=== PATIENT | female | born 1985 | race Caucasian/White ===

== ENCOUNTER → 2020-04-03 11:53 | Outpatient (BNVA) | payer SELFPAY | PROVIDERS: PCP Nurse Practitioner Family; Referring Provider Nurse Practitioner Family; Visit Provider Nurse Practitioner Family | DX: N39.0 Urinary tract infection, site not specified (principal) | CPT/HCPCS: 81003; 87077; 87086; 87184 ==

== ENCOUNTER → 2020-05-16 09:07 | Outpatient (BNVA) | payer SELFPAY | PROVIDERS: PCP Nurse Practitioner Family; Visit Provider Urology | DX: R30.0 Dysuria (principal); N39.0 Urinary tract infection, site not specified | CPT/HCPCS: 81003 ==

== ENCOUNTER → 2020-06-19 09:34 | Outpatient (BNVA) | payer SELFPAY | PROVIDERS: PCP Nurse Practitioner Family; Visit Provider Urology | DX: N39.0 Urinary tract infection, site not specified (principal) | CPT/HCPCS: 81003; 87077; 87086; 87184 ==

== ENCOUNTER → 2020-08-08 10:06 | Outpatient (BNVA) | payer SELFPAY | PROVIDERS: PCP Nurse Practitioner Family; Visit Provider Urology | DX: N39.0 Urinary tract infection, site not specified (principal) | CPT/HCPCS: 81003 ==

== ENCOUNTER → 2021-02-05 11:26 | Outpatient (BNVA) | payer SELFPAY | PROVIDERS: PCP Nurse Practitioner Family; Visit Provider Urology | DX: N39.0 Urinary tract infection, site not specified (principal) | CPT/HCPCS: 81003; 87077; 87086; 87184 ==

== ENCOUNTER → 2021-03-27 15:03 | Outpatient (BNVA) | payer SELFPAY | PROVIDERS: PCP Nurse Practitioner Family; Visit Provider Nurse Practitioner Family | DX: R31.0 Gross hematuria (principal) | CPT/HCPCS: 81003 ==

== ENCOUNTER → 2021-04-16 08:21 | Outpatient (BNVA) | payer SELFPAY | PROVIDERS: PCP Nurse Practitioner Family; Visit Provider Urology | DX: R31.0 Gross hematuria (principal) | CPT/HCPCS: 81003 ==

== ENCOUNTER 2021-05-21 09:00 | Emergency (ER) | payer OTHER, SELFPAY ==
[2021-05-21 09:34] VITALS: BP 120/68; PULSE 69; RESP 18; TEMP 36.9; O2SAT 100; BMI 25.7
[2021-05-21 10:33] VITALS: BP 109/73; PULSE 64; RESP 14; O2SAT 99
[2021-05-21 10:50] LABS: Add Urine Microscopic? NO; Charge for UA Resulting for Rev
[2021-05-21 10:53] LABS: Bilirubin Urine Neg (Negative); Blood Urine Neg (Negative); Glucose Urine UA Norm (Normal); Ketones Urine Negative (Negative); Leukocyte Esterase Urine Negative (Negative); Nitrate Urine Negative (Negative); Protein Urine Neg (Negative); Urine Appearance Clear (CLEAR); Urine Color Yellow (Yellow); Urobilinogen Urine Norm (Negative); pH Urine 7 (5-7)
[2021-05-21 11:31] LABS: Basophils % 0.7 %; Eosinophils # 0.3 10^3/uL (0.0-0.8); Eosinophils % 7.5 %; Hemoglobin 13.1 g/dL (11.5-15.3); Lymphocytes # 1.7 10^3/uL (0.8-4.8); Lymphocytes % 39.2 %; Mean Corpuscular HGB Conc 29.8 g/dL (30.0-36.0); Mean Corpuscular Hemoglobin 28.5 pg (28.0-34.0); Mean Corpuscular Volume 95.9 fl (81-99); Mean Platelet Volume 11.3 fL (7.4-10.4); Monocytes # 0.3 10^3/uL (0.2-0.9); Monocytes % 5.8 %; Neutrophils # 2.01 10^3/uL (1.8-7.7); Neutrophils % 46.8 %; Nucleated Red Blood Cells % 0 %; Platelet Count 165 10^3/cmm (130-400); Red Blood Count 4.59 10^6/uL (4.1-5.3); Red Cell Distribution Width 13.8 % (12.1-15.1); White Blood Count 4.3 10^3/uL (4.0-10.0)
[2021-05-21 11:51] LABS: HCG, Serum Qual Negative (Negative)
--- NOTE | 2021-05-21 11:53 | W.ED.FEMALGU ---
HPI - Female Genitourinary General: Chief complaint: Urogenital-Female Stated complaint: BLOOD IN URINE Time Seen by Provider: 05/21/21 11:53 Source: patient Mode of arrival: ambulatory Limitations: no limitations History of Present Illness: Patient is a 36-year-old female who presents to ED today for an episode of hematuria. Patient states she has had intermittent episodes of hematuria for several months. She has followed up with Dr. Pinto's office several times. She states she has been diagnosed with chronic cystitis/recurrent UTIs. She states at one point they had a plan to do a cystoscopy but this has yet to be completed. She states she noticed blood in her urine yesterday evening and continuing until this morning. She does admit the urine sample given today was pretty clear . Patient is not having any vaginal bleeding. She is not having any pain currently. Denies dysuria, frequency, urgency. MD elicited complaint: other (hematuria) Onset (ago): hour(s) Vaginal discharge: none Vaginal bleeding: none Urinary symptoms: Hematuria Exacerbating factors: none Relieving factors: none Associated symptoms: Reports no associated symptoms; Deny abdominal pain, nausea or vaginal discharge Treatment prior to arrival: none Patient : No Date of Last Menstrual Period: 05/12/21 Review of Systems Const: Denies: fever(s), chills, body aches, fatigue or malaise GI: Denies: abdominal pain, nausea, vomiting or diarrhea : Reports: hematuria; Denies: flank pain, difficulty voiding, dysuria, urinary frequency, urinary urgency, urinary hesitancy, vaginal odor, vaginal bleeding, vaginal discharge, metrorrhagia or pelvic pain Musc: Denies: back pain PFS ED PFSH: Medical History Gross hematuria Recurrent UTI Family History Family/Other Cancer colon Diabetes Hyperlipidemia Hypertension Social History Alcohol intake: never Marital status: Current occupational status: employed History of recent travel: No Female Reproductive History: Date of last menstrual period: 05/12/21 Physical Exam Const: COMMON NORMALS: no acute distress, average body habitus, patient oriented x3, no limitations, healthy appearing, alert and well nourished Resp: COMMON NORMALS: normal respiratory effort and clear to auscultation bilaterally AUSCULTATION: clear to auscultation bilaterally Cardio: COMMON NORMALS: regular rate and regular rhythm RATE: regular rate RHYTHM: regular rhythm GI: COMMON NORMALS: Normal to inspection, nondistended, normoactive bowel sounds present, Soft to palpation, non-tender, No hepatosplenomegaly present and no masses PALPATION: Yes Soft to palpation and Yes No hepatosplenomegaly present : COMMON NORMALS: Yes no CVA tenderness BLADDER/KIDNEY EXAM: Yes no CVA tenderness Back/Pelvis: COMMON NORMALS: no CVA tenderness Neuro: COMMON NORMALS: patient oriented x3 SENSORIUM/ORIENTATION: Yes alert Course Vital Signs: Vital signs: Vital Signs Temperature 98.4 F 05/21/21 09:34 Pulse Rate 64 05/21/21 10:33 Respiratory Rate 14 05/21/21 10:33 Blood Pressure 109/73 05/21/21 10:33 Pulse Oximetry 99 05/21/21 10:33 MDM - Female Medical Decision Making Patient appears in no acute distress. Her vital signs are perfect. Lab work is unremarkable. Her UA today is completely normal-no signs of UTI/no blood noted. Recommend she continue follow-up with urology if symptoms persist and they can re-evaluate the need for a possible cystoscopy. Next appointment is in 6 months-will have CM see if they want/need to see her sooner. Return to ED precautions verbally given to patient. Lab Data : 05/21/21 11:06 05/21/21 11:06 Laboratory Results WBC 4.3 10^3/uL (4.0-10.0) 05/21/21 11:06 RBC 4.59 10^6/uL (4.1-5.3) 05/21/21 11:06 Hgb 13.1 g/dL (11.5-15.3) 05/21/21 11:06 Hct 44.0 % (37.0-47.0) 05/21/21 11:06 MCV 95.9 fl (81-99) 05/21/21 11:06 MCH 28.5 pg (28.0-34.0) 05/21/21 11:06 MCHC 29.8 g/dL (30.0-36.0) L 05/21/21 11:06 RDW 13.8 % (12.1-15.1) 05/21/21 11:06 Plt Count 165 10^3/cmm (130-400) 05/21/21 11:06 MPV 11.3 fL (7.4-10.4) H 05/21/21 11:06 Neut % (Auto) 46.8 % 05/21/21 11:06 Lymph % (Auto) 39.2 % 05/21/21 11:06 [place] % (Auto) 5.8 % 05/21/21 11:06 Eos % (Auto) 7.5 % 05/21/21 11:06 Baso % (Auto) 0.7 % 05/21/21 11:06 Neut # (Auto) 2.01 10^3/uL (1.8-7.7) 05/21/21 11:06 Lymph # (Auto) 1.7 10^3/uL (0.8-4.8) 05/21/21 11:06 [place] # (Auto) 0.3 10^3/uL (0.2-0.9) 05/21/21 11:06 Eos # (Auto) 0.3 10^3/uL (0.0-0.8) 05/21/21 11:06 Baso # (Auto) 0.0 10^3/uL (0.0-0.1) 05/21/21 11:06 Nucleated RBC % (auto) 0 % 05/21/21 11:06 Nucleated RBCs # 0.0 /100WBC 05/21/21 11:06 Sodium 136 mmol/L (136-145) 05/21/21 11:06 Potassium 4.0 mmol/L (3.5-5.1) 05/21/21 11:06 Chloride 103 mmol/L (98-107) 05/21/21 11:06 Carbon Dioxide 23 mmol/L (22-29) 05/21/21 11:06 Anion Gap 14.0 (5-19) 05/21/21 11:06 BUN 5 mg/dL (6-20) L 05/21/21 11:06 Creatinine 0.5 mg/dL (0.5-0.9) 05/21/21 11:06 GFR Calculation 139.6 mL/min (90-130) H 05/21/21 11:06 Glucose 81 mg/dL (65-115) 05/21/21 11:06 Calculated Osmolality 278 mOsm/kg (285-295) L 05/21/21 11:06 Calcium 9.7 mg/dL (8.5-10.5) 05/21/21 11:06 Total Bilirubin 0.3 mg/dL (0.15-1.2) 05/21/21 11:06 AST 20 U/L (0-32) 05/21/21 11:06 ALT 15 U/L (0-33) 05/21/21 11:06 Alkaline Phosphatase 93 IU/L (35-105) 05/21/21 11:06 Total Protein 8.3 g/dL (6.6-8.7) 05/21/21 11:06 Albumin 4.2 g/dL (3.5-5.2) 05/21/21 11:06 Globulin 4.1 g/dL (1.3-4.6) 05/21/21 11:06 HCG, Qual Negative (Negative) 05/21/21 11:06 Urine Color Yellow (Yellow) 05/21/21 10:30 Urine Appearance Clear (CLEAR) 05/21/21 10:30 Urine pH 7 (5-7) 05/21/21 10:30 Ur Specific [place] 1.010 (1.005-1.030) 05/21/21 10:30 Urine Protein Neg (Negative) 05/21/21 10:30 Urine Glucose (UA) Norm (Normal) 05/21/21 10:30 Urine Ketones Negative (Negative) 05/21/21 10:30 Urine Blood Neg (Negative) 05/21/21 10:30 Urine Nitrate Negative (Negative) 05/21/21 10:30 Urine Bilirubin Neg (Negative) 05/21/21 10:30 Urine Urobilinogen Norm mg/dL (Negative) 05/21/21 10:30 Ur Leukocyte Esterase Negative (Negative) 05/21/21 10:30 Discharge Plan Discharge Patient Disposition: Home Clinical Impression: Hematuria Qualifiers: Hematuria type: unspecified type Qualified Code(s): R31.9 - Hematuria, unspecified Condition: Stable Prescriptions: No Action amoxicillin-pot clavulanate 875-125 mg tablet 1 tab PO BID Qty: 60 2RF Discharge Orders: Discharge ED (Routine); Ordered 05/21/21 Ordered By: Rebecca Brandon Referrals: Chelsi Gallagher FNP [Primary Care Provider] - Coding Level of Care Code ED [employer] Director for Carie [facility]
[2021-05-21 11:56] LABS: Alanine Aminotransferase 15 U/L (0-33); Albumin Level 4.2 g/dL (3.5-5.2); Alkaline Phosphatase 93 IU/L (35-105); Aspartate Amino Transferase 20 U/L (0-32); Blood Urea Nitrogen 5 mg/dL (6-20); Calcium 9.7 mg/dL (8.5-10.5); Carbon Dioxide 23 mmol/L (22-29); Chloride 103 mmol/L (98-107); Globulin 4.1 g/dL (1.3-4.6); Glomerular Filtration Rate 139.6 mL/min (90-130); Glucose 81 mg/dL (65-115); Osmolality Calculated 278 mOsm/kg (285-295); Sodium 136 mmol/L (136-145); Total Bilirubin 0.3 mg/dL (0.15-1.2); Total Protein 8.3 g/dL (6.6-8.7)
--- NOTE | 2021-05-22 13:48 | DCPLANNER ---
Addendum entered by Jerrica Dasilva 06/15/21 10:32: Patient had a follow up appointment scheduled for 05.30.[address] Pinto - patient did attend appointment. Addendum entered by Jerrica Dasilva 05/25/21 13:40: Patient has a follow up appointment scheduled for Sunday, May 30, [address] at 8:[address] Pinto. Clinic will call patient with appointment information. Original Note: group fitness manager had message to refer patient to Dr. Pinot. group fitness manager emailed patients information to Dwight Power and Julie at the office of Dr. Pinto. Patient has an appointment, physician wanted to see if appointment could be moved up any earlier. Patients information will be printed and reviewed. Clinic will call patient with appointment information.
== END 2021-05-21 12:16 | disposition home or self-care (01) ==
PROVIDERS: Emergency Provider Physician Assistant; PCP Nurse Practitioner Family
DX: N30.21 Other chronic cystitis with hematuria (principal); Z87.440 Personal history of urinary (tract) infections
CPT/HCPCS: 80053; 81003; 84703; 85025; 99283

== ENCOUNTER → 2021-05-30 10:16 | Outpatient (BNVA) | payer SELFPAY | PROVIDERS: PCP Nurse Practitioner Family; Visit Provider Nurse Practitioner Family | DX: N39.0 Urinary tract infection, site not specified (principal) | CPT/HCPCS: 81003; 87077; 87086; 87184 ==

== ENCOUNTER 2021-06-28 11:58 | Outpatient (CLI) | payer OTHER, SELFPAY ==
--- NOTE | 2021-06-28 12:00 | CT_ITS ---
WS: [id number] CT ABDOMEN AND PELVIS WITH AND WITHOUT CONTRAST HISTORY: GROSS HEMATURIA TECHNIQUE: Unenhanced 5 mm axial imaging first performed through the abdomen. Post contrast imaging t hrough the abdomen and pelvis. Oral contrast has been provided. Sagittal and coronal reformats are s ubmitted. All CT scans at [facility] use at least one of these dose optimization techniques: automated exposure control; mA and/or kV adjustment per patient size (includes targeted exams where d ose is matched to clinical indication); or iterative reconstruction. CONTRAST: Omnipaque 300; 95 mL IV. DLP: 1940.42 mGy.cm COMPARISON: None available. Lung bases are clear. No cardiomegaly. No hiatal hernia. Normal size liver and spleen. Portal vein is patent. Limited opacification of the SMV. Normal gallbladder and pancreas. No adrenal mass. Normal a gary. RIGHT kidney: Normal size kidney. No calcification or obstruction. There is a venous collateral exten ding from the RIGHT renal hilum posterior to the kidney along the psoas muscle to distal collateral. There is good excretion from the kidney. No filling defect in the uroepithelial system or mass. Parti al contrast opacification of the ureter. Distally the ureter is not opacified. LEFT kidney: Normal size kidney with no calcification. Normal enhancement of the kidney. No solid mas s or uroepithelial lesion. Distal ureter is not opacified. No GI tract obstruction. No mucosal thickening or inflammation. The appendix is normal. Uterus is anteverted. Uterus extends slightly greater to the RIGHT of midline. Small amount of free f luid in the pelvis may be physiologic. Minimal distended urinary bladder. Small amount contrast filli ng the bladder posteriorly. Prominent venous collaterals in the pelvis. No osseous destructive lesions. CT/CT abdomen pelvis wo/w [id number] IMPRESSION: 1. No renal calcification, mass or obstruction. 2. No uroepithelial lesions. 3. Small amount of free fluid in the pelvis may be physiologic. 4. Mild constipation.
[2021-06-28] MEDS: iohexol 300 mg/mL 100 mL Btl IV (13:10)
== END 2021-06-28 11:59 | disposition home or self-care (01) ==
PROVIDERS: PCP Nurse Practitioner Family; Visit Provider Urology
DX: R31.0 Gross hematuria (principal); K59.00 Constipation, unspecified
CPT/HCPCS: 74178; 81003; 88112

== ENCOUNTER 2021-07-11 11:59 | Emergency (ER) | payer OTHER, SELFPAY ==
[2021-07-11 12:29] VITALS: BP 114/68; PULSE 75; RESP 18; TEMP 36.2; O2SAT 99; BMI 25.4
--- NOTE | 2021-07-11 12:33 | W.ED.ABDPA2 ---
HPI - Abdominal Pain General: Chief Complaint: Abdominal Pain Stated Complaint: abd pain; Dr. Zimmer sent for CT Time Seen by Provider: 07/11/21 12:30 History of Present Illness: Ms. Gallagher is a 36-year-old lady with significant past medical history of chronic recurrent urinary tract infections who presents to the emergency department due to abdominal pain. She reports few days ago having some constipation however she has had bowel movements. She worked overnight and a few hours into her shift, which involves physical labor, she started feeling ill. She does report lifting heavy objects but started having abdominal pain mostly on the right side. She denies frequent history of similar. Quality is aching and worse with movement. She saw her urologist and apparently urinalysis was obtained and sent for culture. Additionally she then went to her PCP who referred her to the emergency department due to concern over possible appendicitis. She has subsequently developed nausea but no vomiting. She has been having bowel movements. She denies fevers. Intensity symptoms is moderate. Course has worsened. No other specific changes in health, exacerbating, or alleviating factors identified. Onset (ago): hour(s) Pain Consistency: constant Location: RLQ Severity: moderate Quality: aching Radiation: none Exacerbating factors: movement Relieving factors: nothing Context: recent antibiotic use (Currently on Cipro) Associated Symptoms: Reports nausea Related Data: Date of Last Menstrual Period: 05/12/21 Review of Systems General: Reports: 10 or more systems reviewed and unremarkable except in HPI and below GI: Reports: nausea [facility] ED PFSH: Medical History (Updated 07/11/21 @ 16:22 by Erik Stanford MD) Gross hematuria Recurrent UTI Surgical History (Updated 07/11/21 @ 13:23 by Erik Stanford MD) No significant past surgical history Family History Family/Other Cancer colon Diabetes Hyperlipidemia Hypertension Social History Smoking and tobacco status: never smoked Alcohol intake: never Marital status: Current occupational status: employed History of recent travel: No Female Reproductive History: Date of last menstrual period: 05/12/21 Physical Exam Const: COMMON NORMALS: alert GENERAL APPEARANCE: cooperative and well developed HENMT: COMMON NORMALS: normocephalic and atraumatic HEAD & SCALP: normocephalic and atraumatic Eye: COMMON NORMALS: conjunctivae normal CONJUNCTIVA: Yes conjunctivae normal SCLERA: sclerae normal Neck/C-Spine: COMMON NORMALS: supple GENERAL: Yes trachea midline Resp: COMMON NORMALS: normal respiratory effort and clear to auscultation bilaterally EFFORT & INSPECTION: Yes able to speak in complete sentences AUSCULTATION: clear to auscultation bilaterally Cardio: COMMON NORMALS: regular rate and regular rhythm RATE: regular rate RHYTHM: regular rhythm GI: COMMON NORMALS: Soft to palpation PALPATION: Yes Soft to palpation, Yes Tenderness to palpation present (GI) Details: RLQ, No Guarding due to palpation present (GI), No Rigid due to palpation, No Rebound tenderness present and Yes Other GI palpation findings present (tenderness to heel tap) Extremity: GENERAL: Yes normal exam except as noted and No edema Neuro: COMMON NORMALS: moves all extremities SENSORIUM/ORIENTATION: Yes alert and No Orientation impaired Psych: COMMON NORMALS: mental status grossly normal and Normal thought process present THOUGHT PROCESS: Normal thought process present Course ED course: - Patient was seen and evaluated by me at bedside - Patient placed on cardiac monitors, IV access obtained - Initial evaluation notable for exam as above - Labs personally interpreted by me -Antiemetic and analgesia given - Labs notable for no leukocytosis, normal hemoglobin. Metabolic panel without acute derangement. Urinalysis with blood though no evidence of urinary tract infection.. - Imaging notable for no acute finding to explain patient's symptoms. - Upon serial reexamination after treatment the patient was mildly improved - Based on patient history, evaluation, and testing as interpreted the most likely cause of the patient's condition is unspecified abdominal pain - The results of ED evaluation were discussed with the patient including prescriptions and/or symptomatic cares (if applicable) including appropriate and responsible use, followup plan, and return precautions. The patient verbalized understanding and felt safe for discharge. - Patient discharged in satisfactory condition. Note: Click bubbles or prepopulated wells in note writing are used for assistance with data collection and billing and are inherently more limited than narrative and other text portions of this note. Please use narrative for additional clinical history and defer to narrative/free test for any case of contradictory information. If information appears in only free text or click bubble it should be considered present or absent as reported. Please contact note grant writer for clarifications of clinical information or contradictory information. WINDY is a brief summary, contradictory or erroneous seeming information should be clarified and full note should be reviewed. Vital Signs: Vital signs: Vital Signs Temperature 98.0 F 07/11/21 17:23 Pulse Rate 66 07/11/21 17:23 Respiratory Rate 14 07/11/21 17:23 Blood Pressure 109/62 07/11/21 17:23 Pulse Oximetry 98 07/11/21 17:23 MDM - Abdominal Pain Medical Decision Making 36-year-old lady with history of chronic UTI presenting with right lower quadrant abdominal pain. ED evaluation with obvious cause of symptoms. Satisfactory for further outpatient management. Medical Records I reviewed the patient's medical records. Lab Data I reviewed the patient's lab results. : 07/11/21 13:15 07/11/21 13:15 Labs/Radiology: Radiology Impressions Abdomen/Pelvis CT 07/11/21 14:22 IMPRESSION: No acute findings. Laboratory Results WBC 6.1 10^3/uL (4.0-10.0) 07/11/21 13:15 RBC 4.43 10^6/uL (4.1-5.3) 07/11/21 13:15 Hgb 12.8 g/dL (11.5-15.3) 07/11/21 13:15 Hct 39.1 % (37.0-47.0) 07/11/21 13:15 MCV 88.3 fl (81-99) 07/11/21 13:15 MCH 28.9 pg (28.0-34.0) 07/11/21 13:15 MCHC 32.7 g/dL (30.0-36.0) 07/11/21 13:15 RDW 13.8 % (12.1-15.1) 07/11/21 13:15 Plt Count 182 10^3/cmm (130-400) 07/11/21 13:15 MPV 11.5 fL (7.4-10.4) H 07/11/21 13:15 Neut % (Auto) 59.2 % 07/11/21 13:15 Lymph % (Auto) 28.1 % 07/11/21 13:15 [place] % (Auto) 7.4 % 07/11/21 13:15 Eos % (Auto) 4.8 % 07/11/21 13:15 Baso % (Auto) 0.3 % 07/11/21 13:15 Neut # (Auto) 3.61 10^3/uL (1.8-7.7) 07/11/21 13:15 Lymph # (Auto) 1.7 10^3/uL (0.8-4.8) 07/11/21 13:15 [place] # (Auto) 0.5 10^3/uL (0.2-0.9) 07/11/21 13:15 Eos # (Auto) 0.3 10^3/uL (0.0-0.8) 07/11/21 13:15 Baso # (Auto) 0.0 10^3/uL (0.0-0.1) 07/11/21 13:15 Nucleated RBC % (auto) 0 % 07/11/21 13:15 Nucleated RBCs # 0.0 /100WBC 07/11/21 13:15 Sodium 138 mmol/L (136-145) 07/11/21 13:15 Potassium 3.8 mmol/L (3.5-5.1) 07/11/21 13:15 Chloride 104 mmol/L (98-107) 07/11/21 13:15 Carbon Dioxide 23 mmol/L (22-29) 07/11/21 13:15 Anion Gap 14.8 (5-19) 07/11/21 13:15 BUN 8 mg/dL (6-20) 07/11/21 13:15 Creatinine 0.6 mg/dL (0.5-0.9) 07/11/21 13:15 GFR Calculation 113.1 mL/min (90-130) 07/11/21 13:15 Glucose 82 mg/dL (65-115) 07/11/21 13:15 Calculated Osmolality 283 mOsm/kg (285-295) L 07/11/21 13:15 Calcium 9.7 mg/dL (8.5-10.5) 07/11/21 13:15 Total Bilirubin 0.3 mg/dL (0.15-1.2) 07/11/21 13:15 AST 24 U/L (0-32) 07/11/21 13:15 ALT 16 U/L (0-33) 07/11/21 13:15 Alkaline Phosphatase 70 IU/L (35-105) 07/11/21 13:15 Total Protein 8.1 g/dL (6.6-8.7) 07/11/21 13:15 Albumin 4.6 g/dL (3.5-5.2) 07/11/21 13:15 Globulin 3.5 g/dL (1.3-4.6) 07/11/21 13:15 Lipase 33 U/L (13-60) 07/11/21 13:15 HCG, Qual Negative (Negative) 07/11/21 13:35 Urine Color Straw (Yellow) 07/11/21 13:35 Urine Appearance Clear (CLEAR) 07/11/21 13:35 Urine pH 7 (5-7) 07/11/21 13:35 Ur Specific [place] 1.005 (1.005-1.030) 07/11/21 13:35 Urine Protein Neg (Negative) 07/11/21 13:35 Urine Glucose (UA) Norm (Normal) 07/11/21 13:35 Urine Ketones Negative (Negative) 07/11/21 13:35 Urine Blood 3+ (Negative) H 07/11/21 13:35 Urine Nitrate Negative (Negative) 07/11/21 13:35 Urine Bilirubin Neg (Negative) 07/11/21 13:35 Urine Urobilinogen Norm mg/dL (Negative) 07/11/21 13:35 Ur Leukocyte Esterase Negative (Negative) 07/11/21 13:35 Urine RBC 15-25 /hpf (0-2) H 07/11/21 13:35 Urine WBC 0-4 /hpf (0-5) H 07/11/21 13:35 Ur Squamous Epith Cells 0-4 /hpf (0-5) H 07/11/21 13:35 Amorphous Sediment Not Reportable 07/11/21 13:35 Urine Bacteria Trace /hpf (NONE) 07/11/21 13:35 Discharge Plan Discharge Patient Disposition: Home Clinical Impression: Abdominal pain Condition: Stable Prescriptions: No Action phenazopyridine [Pyridium] 200 mg tablet 200 mg PO TID PRN (Reason: pain) Qty: 21 0RF ciprofloxacin HCl 500 mg tablet 500 mg PO BID Qty: 60 2RF Discharge Orders: Discharge ED (Routine); Ordered 07/11/21 Ordered By: Erik Stanford Referrals: Chelsi Gallagher FNP [Primary Care Provider] - Discharge Diet: Usual diet Discharge Activity: Resume usual activity Patient Instructions: Constipation (ED), Abdominal Pain (ED), Opioid Safety Activity Restrictions/Additional Instructions: Thank you for visiting the emergency department. You were seen and evaluated for abdominal pain. The exact cause of your symptoms is unclear as discussed. Please follow-up with your primary care provider. Please return to the emergency department for worsening symptoms or anything else that you are concerned about and feel needs emergency department evaluation. Coding Level of Care Code ED [employer] Guard for Carie Fwd Exam Comprehensive
[2021-07-11 13:10] VITALS: RESP 14; O2SAT 96
[2021-07-11] MEDS: ondansetron 2 mg/ML SDV 2 mL 4 MG IVP (13:10)
[2021-07-11] MEDS: morphine 4 mg/mL SDV 1 mL IVP (13:10)
[2021-07-11 13:25] LABS: Basophils % 0.3 %; Eosinophils # 0.3 10^3/uL (0.0-0.8); Eosinophils % 4.8 %; Hematocrit 39.1 % (37.0-47.0); Hemoglobin 12.8 g/dL (11.5-15.3); Lymphocytes # 1.7 10^3/uL (0.8-4.8); Lymphocytes % 28.1 %; Mean Corpuscular HGB Conc 32.7 g/dL (30.0-36.0); Mean Corpuscular Hemoglobin 28.9 pg (28.0-34.0); Mean Corpuscular Volume 88.3 fl (81-99); Mean Platelet Volume 11.5 fL (7.4-10.4); Monocytes # 0.5 10^3/uL (0.2-0.9); Monocytes % 7.4 %; Neutrophils # 3.61 10^3/uL (1.8-7.7); Neutrophils % 59.2 %; Nucleated Red Blood Cells % 0 %; Platelet Count 182 10^3/cmm (130-400); Red Blood Count 4.43 10^6/uL (4.1-5.3); Red Cell Distribution Width 13.8 % (12.1-15.1); White Blood Count 6.1 10^3/uL (4.0-10.0)
[2021-07-11 13:44] LABS: Alanine Aminotransferase 16 U/L (0-33); Albumin Level 4.6 g/dL (3.5-5.2); Alkaline Phosphatase 70 IU/L (35-105); Anion Gap 14.8 (5-19); Aspartate Amino Transferase 24 U/L (0-32); Blood Urea Nitrogen 8 mg/dL (6-20); Calcium 9.7 mg/dL (8.5-10.5); Carbon Dioxide 23 mmol/L (22-29); Chloride 104 mmol/L (98-107); Globulin 3.5 g/dL (1.3-4.6); Glomerular Filtration Rate 113.1 mL/min (90-130); Glucose 82 mg/dL (65-115); Lipase 33 U/L (13-60); Osmolality Calculated 283 mOsm/kg (285-295); Potassium 3.8 mmol/L (3.5-5.1); Sodium 138 mmol/L (136-145); Total Bilirubin 0.3 mg/dL (0.15-1.2); Total Protein 8.1 g/dL (6.6-8.7)
[2021-07-11 13:56] LABS: Add Urine Microscopic? YES; Bilirubin Urine Neg (Negative); Blood Urine 3+ (Negative); Glucose Urine UA Norm (Normal); Ketones Urine Negative (Negative); Leukocyte Esterase Urine Negative (Negative); Nitrate Urine Negative (Negative); Protein Urine Neg (Negative); Specific Gravity, Urine 1.005 (1.005-1.030); Urine Appearance Clear (CLEAR); Urine Color Straw (Yellow); Urobilinogen Urine Norm (Negative); pH Urine 7 (5-7)
[2021-07-11 13:59] LABS: HCG Qualitative Urine. Negative (Negative)
[2021-07-11 14:09] LABS: Squamous Epithelial Cell Urine 0-4 /hpf (0-5); WBC Urine 0-4 /hpf (0-5)
[2021-07-11 14:10] LABS: Add Urine Culture? Yes; Bacteria Urine TRACE /hpf; RBC Urine 15-25 /hpf (0-2)
--- NOTE | 2021-07-11 14:22 | CTR_ITS ---
PROCEDURE INFORMATION: Exam: CT Abdomen And Pelvis With Contrast Exam date and time: 07/11/2021 2:33 PM Age: 36 years old Clinical indication: Abdominal pain; Localized; Right lower quadrant (rlq); Additional info: Rlq pain, ? appendicitis TECHNIQUE: Imaging protocol: Computed tomography of the abdomen and pelvis with contrast. Radiation optimization: All CT scans at this facility use at least one of these dose optimization techniques: automated exposure control; mA and/or kV adjustment per patient size (includes targeted exams where dose is matched to clinical indication); or iterative reconstruction. Contrast material: OMNI 300; Contrast volume: 95 ml; Contrast route: INTRAVENOUS (IV); COMPARISON: CT abdomen pelvis wo/w [id number] 06/28/2021 1:06 PM RADIATION DOSE METRICS: Total DLP (mGy-cm): 1058.39 FINDINGS: Liver: Normal. No mass. Gallbladder and bile ducts: Normal. No calcified stones. No ductal dilation. Pancreas: Normal. No ductal dilation. Spleen: Normal. No splenomegaly. Adrenal glands: Normal. No mass. Kidneys and ureters: Normal. No hydronephrosis. Stomach and bowel: Unremarkable. No obstruction. No mucosal thickening. Appendix: No evidence of appendicitis. Intraperitoneal space: Unremarkable. No free air. No significant fluid collection. Vasculature: Unremarkable. No abdominal aortic aneurysm. Lymph nodes: Unremarkable. No enlarged lymph nodes. Urinary bladder: Unremarkable as visualized. Reproductive: Unremarkable as visualized. Bones/joints: Unremarkable. No acute fracture. Soft tissues: Unremarkable. CT/CT abdomen pelvis w con* [id number] IMPRESSION: No acute findings.
[2021-07-11] MEDS: iohexol 300 mg/mL 100 mL Btl IV (14:32)
[2021-07-11 14:55] VITALS: BP 111/75; PULSE 73; RESP 15; TEMP 36.7; O2SAT 100
[2021-07-11 17:21] VITALS: BP 109/62; PULSE 66; RESP 14; TEMP 36.7; O2SAT 98
[2021-07-11 17:23] VITALS: BP 109/62; PULSE 66; RESP 14; TEMP 36.7; O2SAT 98
== END 2021-07-11 17:05 | disposition home or self-care (01) ==
PROVIDERS: Emergency Provider Emergency Medicine; PCP Nurse Practitioner Family
DX: R10.9 Unspecified abdominal pain (principal); Z87.440 Personal history of urinary (tract) infections
CPT/HCPCS: 74177; 80053; 81001; 81003; 81025; 83690; 85025; 87086; 96374; 96375; 99284; J2270; J2405; Q9967

== ENCOUNTER → 2021-08-16 13:04 | Outpatient (BNVA) | payer SELFPAY | PROVIDERS: PCP Nurse Practitioner Family; Visit Provider Urology | DX: N39.0 Urinary tract infection, site not specified (principal) | CPT/HCPCS: 81003 ==

== ENCOUNTER → 2021-10-15 14:14 | Outpatient (BNVA) | payer OTHER, SELFPAY | PROVIDERS: PCP Nurse Practitioner Family; Visit Provider Urology | DX: R31.0 Gross hematuria (principal); N39.0 Urinary tract infection, site not specified | CPT/HCPCS: 81003 ==

== ENCOUNTER 2022-01-23 20:15 | Emergency (ER) | payer OTHER, SELFPAY ==
[2022-01-23 20:20] VITALS: BP 96/59; PULSE 77; RESP 16; TEMP 36.7; O2SAT 98; BMI 24.3
--- NOTE | 2022-01-23 20:52 | XRR_ITS ---
PROCEDURE INFORMATION: Exam: XR Lumbosacral Spine Exam date and time: 01/23/2022 8:58 PM Age: 36 years old Clinical indication: Low back pain TECHNIQUE: Imaging protocol: Radiologic exam of the lumbosacral spine. Views: 2 or 3 views. COMPARISON: CT abdomen pelvis w con* [id number] 07/11/2021 2:33 PM FINDINGS: Bones/joints: Three views submitted. No acute fracture or subluxation. Multilevel minimal endplate spurring. Well maintained disc spaces. Soft tissues: Unremarkable. XR/XR lumbar spine 2-3V* [id number] IMPRESSION: No acute findings.
--- NOTE | 2022-01-23 20:55 | W.ED.BACK ---
HPI - Back Pain/Injury General: Chief Complaint: Back Pain/Injury Stated Complaint: burning/numbness lower left side Time Seen by Provider: 01/23/22 20:34 History of Present Illness: 36-year-old female comes in today for complaints of low back pain with radiation of discomfort down the left leg. Patient has had pain on and off for months. Patient also reports some difficulty of urination. Patient has had a history of urinary tract infections. Patient appears nontoxic. Patient appears in mild pain. Review of Systems General: Reports: 10 or more systems reviewed and unremarkable except in HPI and below Musc: Reports: back pain and extremity pain PFSH ED PFSH: Medical History Gross hematuria Recurrent UTI Surgical History No significant past surgical history Family History Family/Other Cancer colon Diabetes Hyperlipidemia Hypertension Social History Smoking and tobacco status: never smoked Alcohol intake: never Marital status: Current occupational status: employed History of recent travel: No Female Reproductive History: Date of last menstrual period: 01/16/22 Physical Exam Const: COMMON NORMALS: alert HENMT: COMMON NORMALS: normocephalic HEAD & SCALP: normocephalic Neck/C-Spine: COMMON NORMALS: no lymphadenopathy Resp: COMMON NORMALS: normal respiratory effort Cardio: COMMON NORMALS: regular rate RATE: regular rate Back/Pelvis: LUMBAR SPINE/LOWER BACK: Yes lumbar spinal tenderness Lumbar spinal tenderness location: L5 and Yes paraspinal muscle tenderness Lumbar paraspinal muscle tenderness: left left lumbar paraspinal muscle tenderness: L4 and L5 Extremity: COMMON NORMALS: normal to inspection Neuro: SENSORIUM/ORIENTATION: Yes alert Skin: COMMON NORMALS: turgor normal GENERAL SKIN EXAM: turgor normal Course Vital Signs: Vital signs: Vital Signs Temperature 98.1 F 01/23/22 20:20 Pulse Rate 77 01/23/22 20:20 Respiratory Rate 16 01/23/22 20:20 Blood Pressure 96/59 01/23/22 20:20 Pulse Oximetry 98 01/23/22 20:20 Oxygen Delivery Me thod 01/23/22 20:20 MDM - Back Pain/Injury Medical Decision Making 36-year-old female comes in today with complaints of low back pain radiating to the left lower back into her buttocks and down her left leg. 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 Patient appears nontoxic. Patient appears in no acute distress. On exam we have some muscle tenderness in the left lower back pelvic area and some mild tenderness along the lumbar spine around L4-L5. Leg lift test is negative. Vital signs are normal. Differential diagnosis includes but not limited to intervertebral disc disease, facet arthropathy, lumbar radiculopathy, muscle strain. X-rays of the lumbar spine noted no fractures. Review of the record did note a CT scan from abdomen and pelvis that was done in June of this year that showed some mild lower scoliosis but no obvious disc herniation or bulging. Patient does have some narrowing of the L4-L5 and L5-S1 disc as observed on this CT scan from June. Suspect some low back pain with mild disc degeneration and lumbar radiculopathy. Would recommend follow-up with orthospine for further evaluation and treatment. Patient was recommended use acetaminophen and anti-inflammatory. Patient reported understanding and agreed to plan. Discharge Plan Discharge Patient Disposition: Home Clinical Impression: Lumbar radiculopathy Condition: Stable Prescriptions: New ketorolac 10 mg tablet 10 mg PO Q6H PRN (Reason: pain) 5 Days Qty: 15 0RF No Action ciprofloxacin HCl 500 mg tablet 500 mg PO BID Qty: 60 2RF phenazopyridine [Pyridium] 200 mg tablet 200 mg PO TID PRN (Reason: pain) Qty: 21 0RF Discharge Orders: Discharge ED (Routine); Ordered 01/23/22 Ordered By: Ab Singh Referrals: Chelsi Gallagher FNP [Primary Care Provider] - Discharge Diet: Usual diet Discharge Activity: Increase activity as tolerated Patient Instructions: Lumbar Radiculopathy (ED) Activity Restrictions/Additional Instructions: BenefitHome and rest. Take medications as directed. And ketorolac for pain control. Do not use ibuprofen or naproxen while using the ketorolac. Use gentle stretching exercises along with ice and heat for further pain relief. Follow-up with primary care as needed. Case management will contact you regarding a follow-up appointment with spinal hearing care practitioner Dr. Okeefe, for further evaluation and treatment. Coding Level of Care Code ED Charge Preparation Technician for Chg Fwd Exam Comprehensive
[2022-01-23 21:25] LABS: Urine Appearance Clear (CLEAR); Urine Color Yellow (Yellow); pH Urine 7 (5-7)
[2022-01-23 21:26] LABS: Add Urine Microscopic? YES; Bilirubin Urine Neg (Negative); Blood Urine 3+ (Negative); Glucose Urine UA Norm (Normal); Ketones Urine Negative (Negative); Leukocyte Esterase Urine 1+ (Negative); Nitrate Urine Negative (Negative); Protein Urine 1+ (Negative); RBC Urine 25-40 /hpf (0-2); Urobilinogen Urine Norm (Negative)
[2022-01-23 21:27] LABS: Add Urine Culture? No; Bacteria Urine TRACE /hpf
[2022-01-23] MEDS: dexamethasone 10 mg/mL INJ IM (21:27)
[2022-01-23] MEDS: ketorolac 30 mg/mL INJ IM (21:28)
--- NOTE | 2022-01-24 12:08 | DCPLANNER ---
Addendum entered by Jerrica Dasilva 04/19/22 14:37: Patient has a follow up appointment scheduled with ortho - patient did attend appointment. Addendum entered by Jerrica Dasilva 01/25/22 14:23: Patient has a follow up appointment scheduled for January at 10:[address] Okeefe at ortho. Clinic will call patient with appointment information. Original Note: assistant guest services manager had message to schedule a follow up appointment for patient with ortho. assistant guest services manager sent patients information to the front office staff at ortho. Patients information will be printed and reviewed. Clinic will call patient with appointment information.
== END 2022-01-23 21:45 | disposition home or self-care (01) ==
PROVIDERS: Emergency Provider Nurse Practitioner Family; PCP Nurse Practitioner Family
DX: M54.16 Radiculopathy, lumbar region (principal)
CPT/HCPCS: 72100; 81001; 96372; 99284; J1100; J1885

== ENCOUNTER → 2022-01-31 10:55 | Outpatient (BNVA) | payer OTHER, SELFPAY | PROVIDERS: PCP Nurse Practitioner Family; Referring Provider Nurse Practitioner Family; Visit Provider Orthopaedic Surgery | DX: M48.062 Spinal stenosis, lumbar region with neurogenic claudication (principal) | CPT/HCPCS: 72120 ==

== ENCOUNTER 2022-03-13 12:10 | Outpatient (CLI) | payer OTHER, SELFPAY ==
--- NOTE | 2022-03-13 11:45 | MR_ITS ---
WS: [id number] MRI LUMBAR SPINE NONCONTRAST TECHNIQUE: Sagittal T1, T2 and STIR imaging. Axial T1 and T2 imaging. CLINICAL INFORMATION: low back pain, burning, numbness COMPARISON: None. FINDINGS: Mild lumbar curve. No acute compression. No high-grade central canal stenosis. L1-L2: Mild facet arthropathy. Spinal canal and foramen are patent. L2-L3: Mild annular bulging. Slight narrowing of the LEFT subarticular recess. Mild facet arthropathy . Spinal canal and foramen are patent. L3-L4: Mild annular bulging with slight effacement of the ventral thecal sac. Slight impingement linwood ersing LEFT L4 nerve root. Mild facet arthropathy. Mild RIGHT foraminal narrowing. L4-L5: No significant disc bulging. Moderate facet arthropathy. Mild RIGHT foraminal narrowing. Spina l canal is patent. L5-S1: No significant disc bulging. Mild to moderate facet arthropathy. Spinal canal and foramen are patent. 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 No significant foraminal narrowing Visualized pelvic bony structures: Normal. Paravertebral soft tissues: Normal. MR/MR lumbar spine wo con* [id number] IMPRESSION: 1. Mild lumbar curve. No acute compression. No high-grade central canal stenos is. 2. Slight narrowing of the LEFT L2-L3, L3-L4 subarticular recess. 3. Mild RIGHT L3-L4 and RIGHT L4-L5 foraminal narrowing. 4. Moderate facet arthropathy L3-L5. 5. 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
== END 2022-03-13 12:11 | disposition home or self-care (01) ==
PROVIDERS: PCP Nurse Practitioner Family; Visit Provider Orthopaedic Surgery
DX: M54.50 Low back pain, unspecified (principal); M47.896 Other spondylosis, lumbar region
CPT/HCPCS: 72148

== ENCOUNTER → 2022-04-01 16:27 | Outpatient (BNVA) | payer OTHER, SELFPAY | PROVIDERS: PCP Nurse Practitioner Family; Referring Provider Physician Assistant; Visit Provider Specialist | DX: R20.0 Anesthesia of skin (principal); R20.2 Paresthesia of skin | CPT/HCPCS: 36415; 80053; 82746; 84443; 85025 ==

== ENCOUNTER 2022-04-03 06:50 | Outpatient (CLI) | payer OTHER, SELFPAY ==
--- NOTE | 2022-04-03 07:15 | MR_ITS ---
WS: [id number] MRI CERVICAL SPINE NONCONTRAST HISTORY: cervical pain COMPARISON: None available. Technique: Multiplanar, multisequence noncontrast imaging of the cervical spine. Straightening of the normal cervical lordosis with reversal at C4-5. Signal within the cervical cord is normal. Visualized posterior fossa is unremarkable. Craniocervical junction, C1 and C2 relationship, odontoid process and soft tissues are normal. C2-C3: Normal. C3-C4: Mild bilateral facet joint arthritis. No stenosis. C4-C5: Mild disc bulging and osteophytic ridging. Mild encroachment upon the ventral thoracic cord. M ild central and bilateral foraminal stenosis. C5-C6: Normal. C6-C7: Mild osteophytic ridging and a very tiny central disc protrusion. Mild facet arthritis. C7-T1: Normal. Paraspinal soft tissue are normal. MR/MR cervical spin wo con* [id number] IMPRESSION: 1. Mild central and bilateral foraminal stenosis at C4-5 due to disc bulging a nd osteophytic ridging. 2. Tiny central disc protrusion at C6-7.
== END 2022-04-03 06:51 | disposition home or self-care (01) ==
LOC: RAD 06:52
PROVIDERS: PCP Nurse Practitioner Family; Visit Provider Physician Assistant
DX: M54.2 Cervicalgia (principal); R29.2 Abnormal reflex; M48.02 Spinal stenosis, cervical region
CPT/HCPCS: 72141

== ENCOUNTER 2022-04-21 14:51 | Emergency (ER) | payer BC, SELFPAY ==
[2022-04-21 14:57] VITALS: BP 137/77; PULSE 85; RESP 16; TEMP 36.6; O2SAT 100
[2022-04-21 16:02] LABS: Basophils % 0.3 %; Eosinophils # 0.3 10^3/uL (0.0-0.8); Hematocrit 40.3 % (37.0-47.0); Hemoglobin 12.6 g/dL (11.5-15.3); Lymphocytes # 1.8 10^3/uL (0.8-4.8); Lymphocytes % 29.6 %; Mean Corpuscular HGB Conc 31.3 g/dL (30.0-36.0); Mean Corpuscular Hemoglobin 26.6 pg (28.0-34.0); Mean Platelet Volume 11.5 fL (7.4-10.4); Monocytes # 0.4 10^3/uL (0.2-0.9); Monocytes % 6.7 %; Neutrophils # 3.56 10^3/uL (1.8-7.7); Neutrophils % 58.1 %; Nucleated Red Blood Cells % 0 %; Platelet Count 186 10^3/cmm (130-400); Red Blood Count 4.74 10^6/uL (4.1-5.3); Red Cell Distribution Width 14.3 % (12.1-15.1); White Blood Count 6.1 10^3/uL (4.0-10.0)
[2022-04-21 16:12] LABS: Add Urine Microscopic? YES; Bilirubin Urine Neg (Negative); Blood Urine Trace (Negative); Glucose Urine UA Norm (Normal); HCG Qualitative Urine. Negative (Negative); Ketones Urine Negative (Negative); Leukocyte Esterase Urine Trace (Negative); Nitrate Urine Negative (Negative); Protein Urine Neg (Negative); Urine Appearance Clear (CLEAR); Urine Color Yellow (Yellow); Urobilinogen Urine Norm (Negative); pH Urine 6.5 (5-7)
[2022-04-21 16:18] LABS: Alanine Aminotransferase 9 U/L (0-33); Albumin Level 4.4 g/dL (3.5-5.2); Alkaline Phosphatase 84 U/L (35-105); Anion Gap 11.9 (5-19); Aspartate Amino Transferase 15 U/L (0-32); Blood Urea Nitrogen 10 mg/dL (6-20); Calcium 9.8 mg/dL (8.5-10.5); Carbon Dioxide 25 mmol/L (22-29); Chloride 100 mmol/L (98-107); Globulin 4.4 g/dL (1.3-4.6); Glomerular Filtration Rate 94.2 mL/min (90-130); Glucose 90 mg/dL (65-115); Osmolality Calculated 275 mOsm/kg (285-295); Potassium 3.9 mmol/L (3.5-5.1); Sodium 133 mmol/L (136-145); Total Bilirubin 0.2 mg/dL (0.15-1.2); Total Protein 8.8 g/dL (6.6-8.7)
[2022-04-21 16:24] LABS: Bacteria Urine TRACE /hpf; RBC Urine 0-4 /hpf (0-2); Squamous Epithelial Cell Urine RARE /hpf (0-5)
[2022-04-21] MEDS: ketorolac 30 mg/mL INJ 15 MG IM (16:35)
[2022-04-21] MEDS: orphenadrine 30 mg/mL Inj 2 mL 60 MG IM (16:37)
--- NOTE | 2022-04-21 16:39 | ED_ITS ---
HPI - Extremity Problem General: Chief complaint: Extremity Problem,Nontraumatic Stated complaint: n/v, lower back and abd pain Time Seen by Provider: 04/21/22 16:08 History of Present Illness: 37-year-old female presents with chronic low back pain chronic right hip pain. Patient reports that she has had MRIs on her low back, neck and hip. That they have not found any abnormalities. She reports that she continues to have pain. She is seeing solar energy sales specialist and neurologist. Patient also reports that she is has some hematuria with recurrent UTIs. That she started her Cipro today because she is they have her self diagnosed. She has a little bit of mild nausea and vomiting. She has no new injuries. She reports that she is seen the neurologist and they want an MRI of her thoracic spine or brain but she is upset because she cannot get MRI to call her back patient is currently not take anything for the pain. Associated symptoms: Deny chest pain or fever(s) Review of Systems Const: Denies: fever(s) or chills Eyes: Denies: change in vision Card: Denies: chest pain, palpitations or irregular heart rhythm Resp: Denies: dyspnea or productive cough GI: Reports: nausea and vomiting; Denies: abdominal pain : Reports: urinary frequency and hematuria Musc: Reports: other (Please see HPI) Neuro: Reports: numbness in extremities (Chronic bilateral lower extremities); Denies: headache(s) PFS ED PFSH: Medical History Gross hematuria Recurrent UTI Surgical History No significant past surgical history Family History Family/Other Cancer colon Diabetes Hyperlipidemia Hypertension Social History Smoking and tobacco status: never smoked Alcohol intake: never Marital status: Current occupational status: employed History of recent travel: No Female Reproductive History: Date of last menstrual period: 01/16/22 Physical Exam Const: COMMON NORMALS: no acute distress, patient oriented x3 and no limitations HENMT: COMMON NORMALS: hearing grossly normal bilaterally and moist oral muc ous membranes Neck/C-Spine: COMMON NORMALS: full ROM Resp: COMMON NORMALS: normal respiratory effort, No use of accessory muscles and clear to auscultation bilaterally AUSCULTATION: clear to auscultation bilaterally Cardio: COMMON NORMALS: regular rate and regular rhythm RATE: regular rate RHYTHM: regular rhythm GI: COMMON NORMALS: Soft to palpation and non-tender PALPATION: Yes Soft to palpation : COMMON NORMALS: Yes no CVA tenderness BLADDER/KIDNEY EXAM: Yes no CVA tenderness Back/Pelvis: COMMON NORMALS: no CVA tenderness Extremity: COMMON NORMALS: capillary refill normal and no pedal edema Neuro: COMMON NORMALS: patient oriented x3, moves all extremities, no focal motor deficits and no sensory deficits noted Psych: COMMON NORMALS: mental status grossly normal, normal affect and speech normal SPEECH: Yes normal speech Skin: COMMON NORMALS: no rashes or lesions noted and turgor normal GENERAL SKIN EXAM: no rashes or lesions noted and turgor normal Course Vital Signs: Vital signs: Vital Signs Temperature 97.9 F 04/21/22 14:57 Pulse Rate 85 04/21/22 14:57 Respiratory Rate 16 04/21/22 14:57 Blood Pressure 137/77 04/21/22 14:57 Pulse Oximetry 100 04/21/22 14:57 Oxygen Delivery Me thod 04/21/22 14:57 MDM - Extremity (Nontraumatic) Medical Decision Making Patient's hip pain is chronic and has been going on for years. Patient's last note on 03/19/[address] Cortes her neurologist reports that they are concerned about upper neuromotor lesion. That they plan on obtaining an MRI of head cervical and thoracic spines. I discussed with patient I understand she is frustrated that she has not got her MRI however there is no emergent need for this since her pain based on this chart review is been gone for at least 8 years as she has seen both a neurologist and solar energy sales specialist. I did give her Toradol and Norflex to help with what she feels like is some acute worsening of the pain. I did offer her anti-inflammatory prescription and maybe a muscle relaxant to help with her spasticity but she declined. She reports that in 2 days she has a follow-up appointment. I recommended that she call her neurologist to help with her outpatient MRI. Patient also has a known history of recurrent UTIs and has just started her Cipro today. Recommend she take her Cipro as directed and follow-up in about a week for recheck of her urine. Patient with no other significant acute abnormalities on her labs. Patient stable and discharged home Lab Data 04/21/22 15:48 04/21/22 15:48 Laboratory Results WBC 6.1 10^3/uL (4.0-10.0) 04/21/22 15:48 RBC 4.74 10^6/uL (4.1-5.3) 04/21/22 15:48 Hgb 12.6 g/dL (11.5-15.3) 04/21/22 15:48 Hct 40.3 % (37.0-47.0) 04/21/22 15:48 MCV 85.0 fl (81-99) 04/21/22 15:48 MCH 26.6 pg (28.0-34.0) L 04/21/22 15:48 MCHC 31.3 g/dL (30.0-36.0) 04/21/22 15:48 RDW 14.3 % (12.1-15.1) 04/21/22 15:48 Plt Count 186 10^3/cmm (130-400) 04/21/22 15:48 MPV 11.5 fL (7.4-10.4) H 04/21/22 15:48 Neut % (Auto) 58.1 % 04/21/22 15:48 Lymph % (Auto) 29.6 % 04/21/22 15:48 [place] % (Auto) 6.7 % 04/21/22 15:48 Eos % (Auto) 5.0 % 04/21/22 15:48 Baso % (Auto) 0.3 % 04/21/22 15:48 Neut # (Auto) 3.56 10^3/uL (1.8-7.7) 04/21/22 15:48 Lymph # (Auto) 1.8 10^3/uL (0.8-4.8) 04/21/22 15:48 [place] # (Auto) 0.4 10^3/uL (0.2-0.9) 04/21/22 15:48 Eos # (Auto) 0.3 10^3/uL (0.0-0.8) 04/21/22 15:48 Baso # (Auto) 0.0 10^3/uL (0.0-0.1) 04/21/22 15:48 Nucleated RBC % (auto) 0 % 04/21/22 15:48 Nucleated RBCs # 0.0 /100WBC 04/21/22 15:48 Sodium 133 mmol/L (136-145) L 04/21/22 15:48 Potassium 3.9 mmol/L (3.5-5.1) 04/21/22 15:48 Chloride 100 mmol/L (98-107) 04/21/22 15:48 Carbon Dioxide 25 mmol/L (22-29) 04/21/22 15:48 Anion Gap 11.9 (5-19) 04/21/22 15:48 BUN 10 mg/dL (6-20) 04/21/22 15:48 Creatinine 0.7 mg/dL (0.5-0.9) 04/21/22 15:48 GFR Calculation 94.2 mL/min (90-130) 04/21/22 15:48 Glucose 90 mg/dL (65-115) 04/21/22 15:48 Calculated Osmolality 275 mOsm/kg (285-295) L 04/21/22 15:48 Calcium 9.8 mg/dL (8.5-10.5) 04/21/22 15:48 Total Bilirubin 0.2 mg/dL (0.15-1.2) 04/21/22 15:48 AST 15 U/L (0-32) 04/21/22 15:48 ALT 9 U/L (0-33) 04/21/22 15:48 Alkaline Phosphatase 84 U/L (35-105) 04/21/22 15:48 Total Protein 8.8 g/dL (6.6-8.7) H 04/21/22 15:48 Albumin 4.4 g/dL (3.5-5.2) 04/21/22 15:48 Globulin 4.4 g/dL (1.3-4.6) 04/21/22 15:48 HCG, Qual Negative (Negative) 04/21/22 15:45 Urine Color Yellow (Yellow) 04/21/22 15:45 Urine Appearance Clear (CLEAR) 04/21/22 15:45 Urine pH 6.5 (5-7) 04/21/22 15:45 Ur Specific [place] 1.010 (1.005-1.030) 04/21/22 15:45 Urine Protein Neg (Negative) 04/21/22 15:45 Urine Glucose (UA) Norm (Normal) 04/21/22 15:45 Urine Ketones Negative (Negative) 04/21/22 15:45 Urine Blood Trace (Negative) H 04/21/22 15:45 Urine Nitrate Negative (Negative) 04/21/22 15:45 Urine Bilirubin Neg (Negative) 04/21/22 15:45 Urine Urobilinogen Norm mg/dL (Negative) 04/21/22 15:45 Ur Leukocyte Esterase Trace (Negative) H 04/21/22 15:45 Urine RBC 0-4 /hpf (0-2) H 04/21/22 15:45 Urine WBC 10-15 /hpf (0-5) H 04/21/22 15:45 Ur Squamous Epith Cells Rare /hpf (0-5) 04/21/22 15:45 Amorphous Sediment Not Reportable 04/21/22 15:45 Urine Bacteria Trace /hpf (NONE) 04/21/22 15:45 Discharge Plan Discharge Patient Disposition: Home Clinical Impression: Recurrent UTI, Chronic right hip pain Condition: Stable Prescriptions: No Action ciprofloxacin HCl 500 mg tablet 500 mg PO BID Qty: 60 2RF phenazopyridine [Pyridium] 200 mg tablet 200 mg PO TID PRN (Reason: pain) Qty: 21 0RF Discharge Orders: Discharge ED (Routine); Ordered 04/21/22 Ordered By: Teodoro Freire Referrals: Chelsi Gallagher FNP [Primary Care Provider] - Discharge Diet: Advance as tolerated Discharge Activity: Increase activity as tolerated Patient Instructions: Urinary Tract Infection in Women (DC), Arthralgia (ED), Hip Pain (ED), Opioid Safety, Pain Management Activity Restrictions/Additional Instructions: Please keep appointments with neurologist and orthopedic/wildlife refuge specialist. You may use ibuprofen 800 mg 3 times a day along with topical lidocaine with menthol. Please follow-up with your primary care provider after Cipro x5 days for recheck of your urine. Coding Level of Care Code ED Time Buyer for Chg Fwd Exam Comprehensive
== END 2022-04-21 17:06 | disposition home or self-care (01) ==
PROVIDERS: Emergency Provider Student in an Organized Health Care Education/Training Program; PCP Nurse Practitioner Family
DX: G89.29 Other chronic pain (principal); M25.551 Pain in right hip; N39.0 Urinary tract infection, site not specified; Z87.440 Personal history of urinary (tract) infections
CPT/HCPCS: 36415; 80053; 81001; 81025; 85025; 96372; 99284; J1885; J2360

== ENCOUNTER → 2022-04-24 08:14 | Outpatient (BNVA) | payer BC, SELFPAY | PROVIDERS: PCP Nurse Practitioner Family; Visit Provider Podiatrist Foot & Ankle Surgery | DX: M79.671 Pain in right foot (principal); M79.672 Pain in left foot; M89.8X7 Other specified disorders of bone, ankle and foot; M54.16 Radiculopathy, lumbar region | CPT/HCPCS: 73630 ==

== ENCOUNTER 2022-05-09 07:53 | Outpatient (CLI) | payer BC, SELFPAY ==
--- NOTE | 2022-05-09 08:00 | MR_ITS ---
WS: [id number] MRI THORACIC SPINE WITHOUT CONTRAST TECHNIQUE: Sagittal T1, T2 and STIR imaging. Axial T2 imaging. Noncontrast imaging obtained. CLINICAL INFORMATION: R25.2 - Cramp and spasm COMPARISON: None. FINDINGS: Mild thoracic curve. No acute compression. No high-grade central canal stenosis. Cord signal is sergio l. CSF pulsation artifact in the dorsal spinal canal. Disc space heights and vertebral body heights well-preserved. No significant disc extrusions or protr usions. Cord signal is normal. Normal visualized thoracic aorta. Adrenal glands are normal. Normal paravertebral soft tissues. No ot her suspicious findings. MR/MR thoracic spin wo con* [id number] IMPRESSION: No acute thoracic spine findings
--- NOTE | 2022-05-09 08:45 | MR_ITS ---
WS: [id number] MRI HEAD WITHOUT CONTRAST TECHNIQUE: Sagittal T1, T2 axial, T2 axial FLAIR, axial and coronal T1 images, axial susceptibility w eighted imaging, axial diffusion weighted images, and coronal T2 images were obtained. CLINICAL INFORMATION: R25.2 - Cramp and spasm COMPARISON: None. FINDINGS: No evidence of restricted diffusion to suggest acute ischemia. Ventricular system and basal cisterns are patent. No suspicious intracranial signal abnormalities. Normal harrell-white differentiation. Elisabet l posterior fossa. Normal vascular flow voids at the skull base. No extra-axial fluid collections. No evidence of mass or mass effect. Mucosal thickening in the paranasal sinuses. Mastoid air cells are well aerated. Normal posterior nasopharynx. Normal parapharyngeal fat. No hemos iderin on susceptibly weighted images. Benign venous angioma in the LEFT frontal lobe. Normal optic c hiasm and pituitary infundibulum. Temporal lobes and hippocampal formations are normal in appearance. Normal cavernous sinuses and Meckel's cave. MR/MR head wo con* [id number] IMPRESSION: 1. No evidence of restricted diffusion to suggest acute ischemia. 2. No suspicious intracranial signal abnormalities. 3. Benign venous angioma in the LEFT frontal lobe. 4. Mild mucosal thickening in the paranasal sinuses. Mastoid air cells well ae rated. 5. No other suspicious findings.
== END 2022-05-09 07:54 | disposition home or self-care (01) ==
PROVIDERS: PCP Nurse Practitioner Family; Visit Provider Specialist
DX: R25.2 Cramp and spasm (principal); Q28.3 Other malformations of cerebral vessels
CPT/HCPCS: 70551; 72146

== ENCOUNTER 2022-07-02 11:00 | Emergency (ER) | payer BC, SELFPAY ==
[2022-07-02 11:13] VITALS: BP 105/69; PULSE 71; RESP 16; TEMP 36.8; O2SAT 98
[2022-07-02 11:18] VITALS: PULSE 77; O2SAT 99
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
[2022-07-02 12:35] LABS: Add Urine Microscopic? YES; Bilirubin Urine Neg (Negative); Blood Urine 3+ (Negative); Glucose Urine UA Norm (Normal); Ketones Urine Negative (Negative); Leukocyte Esterase Urine Negative (Negative); Nitrate Urine Negative (Negative); Protein Urine 1+ (Negative); Urine Appearance Cloudy (CLEAR); Urine Color Yellow (Yellow); Urobilinogen Urine Neg (Negative); pH Urine 6 (5-7)
[2022-07-02 12:42] LABS: Add Urine Culture? Yes; RBC Urine >100 /hpf (0-2); WBC Urine RARE /hpf (0-5)
[2022-07-02 12:48] VITALS: BP 112/71; PULSE 67; RESP 20; O2SAT 100
[2022-07-02 13:30] VITALS: PULSE 80; O2SAT 99
== END 2022-07-02 13:32 | disposition home or self-care (01) ==
PROVIDERS: Emergency Provider Emergency Medicine; PCP Nurse Practitioner Family
DX: Z04.1 Encounter for examination and observation following transport accident (principal); R31.9 Hematuria, unspecified; Z87.440 Personal history of urinary (tract) infections; V89.2XXA Person injured in unspecified motor-vehicle accident, traffic, initial encounter
CPT/HCPCS: 74176; 81001; 87086; 99284

== ENCOUNTER 2022-09-14 10:18 | Emergency (ER) | payer BC, SELFPAY ==
[2022-09-14 10:26] VITALS: BP 120/52; PULSE 79; RESP 16; TEMP 36.7; O2SAT 98; BMI 24.7
[2022-09-14 11:00] LABS: Add Urine Microscopic? YES; Bilirubin Urine Neg (Negative); Blood Urine 3+ (Negative); Glucose Urine UA Norm (Normal); Ketones Urine Negative (Negative); Leukocyte Esterase Urine Negative (Negative); Nitrate Urine Negative (Negative); Protein Urine Neg (Negative); Specific Gravity, Urine 1.005 (1.005-1.030); Urine Appearance Clear (CLEAR); Urine Color Yellow (Yellow); Urobilinogen Urine Norm (Negative); pH Urine 7 (5-7)
[2022-09-14 11:01] LABS: Add Urine Culture? No; Bacteria Urine TRACE /hpf; Squamous Epithelial Cell Urine 0-4 /hpf (0-5); WBC Urine 0-4 /hpf (0-5)
--- NOTE | 2022-09-14 11:23 | W.ED.ABDPA2 ---
HPI - Abdominal Pain General: Chief Complaint: Abdominal Pain Stated Complaint: urinating blood, Lower Right abd pain Time Seen by Provider: 09/14/22 10:23 History of Present Illness: Patient presents to the ER with complaints of right flank pain lower right abdominal pain and urinating blood. Patient states she is on daily Cipro to prevent UTIs. This feels like a UTI with her. She has appoint with the urologist coming up but was afraid she could not wait when her right flank started hurting. MD elicited complaint: flank pain Pertinent past history: past UTI Onset (ago): day(s) Pain Consistency: constant Location: R flank Severity: mild Quality: aching Radiation: none Migration to: no migration Exacerbating factors: nothing Relieving factors: nothing Associated Symptoms: Reports hematuria Review of Systems General: Reports: 10 or more systems reviewed and unremarkable except in HPI and below : Reports: hematuria PFSH ED PFSH: Medical History Gross hematuria Recurrent UTI Surgical History No significant past surgical history Family History Family/Other Cancer colon Diabetes Hyperlipidemia Hypertension Social History Smoking and tobacco status: never smoked Alcohol intake: never Substance/Drug Use: never Marital status: Current occupational status: employed Physical Exam Const: COMMON NORMALS: no acute distress, average body habitus, patient oriented x3, no limitations, healthy appearing, alert and well nourished HENMT: COMMON NORMALS: normocephalic, atraumatic, hearing grossly normal bilaterally, external ears normal, Normal external nose present and moist oral mucous membranes HEAD & SCALP: normocephalic and atraumatic NOSE: Normal external nose present EXTERNAL EAR: Yes external ears normal Eye: COMMON NORMALS: Equal, round and reactive pupils present, EOMs intact bilaterally, conjunctivae normal and no scleral icterus CONJUNCTIVA: Yes conjunctivae normal PUPIL: Yes Equal, round and reactive pupils present Neck/C-Spine: COMMON NORMALS: full ROM, no lymphadenopathy, supple, no meningeal signs, no JVD and Thyroid normal THYROID: Thyroid normal Lymph: LYMPHATIC: no lymphadenopathy noted Chest: COMMONS NORMALS: normal inspection of the chest and normal palpation of entire chest wall Resp: COMMON NORMALS: normal respiratory effort, No retractions, No use of accessory muscles and clear to auscultation bilaterally AUSCULTATION: clear to auscultation bilaterally Cardio: COMMON NORMALS: no JVD, regular rate, regular rhythm, S1 normal heart sound present and S2 normal heart sound present RATE: regular rate RHYTHM: regular rhythm HEART SOUNDS: S1 normal heart sound present and S2 normal heart sound present GI: COMMON NORMALS: Normal to inspection, nondistended, normoactive bowel sounds present, Soft to palpation, non-tender, No hepatosplenomegaly present and no masses PALPATION: Yes Soft to palpation and Yes No hepatosplenomegaly present : COMMON NORMALS: Yes no CVA tenderness BLADDER/KIDNEY EXAM: Yes no CVA tenderness Back/Pelvis: COMMON NORMALS: no CVA tenderness Neuro: COMMON NORMALS: patient oriented x3 SENSORIUM/ORIENTATION: Yes alert MENINGEAL SIGNS: Yes no meningeal signs Course Vital Signs: Vital signs: Vital Signs Temperature 98.1 F 09/14/22 10:26 Pulse Rate 79 09/14/22 13:18 Respiratory Rate 16 09/14/22 13:18 Blood Pressure 120/52 09/14/22 13:18 Pulse Oximetry 98 09/14/22 13:18 Oxygen Delivery Me thod Room Air 09/14/22 10:26 MDM - Abdominal Pain Medical Decision Making Patient presents to the ER with right-sided flank pain and hematuria. Patient has chronic history of UTIs with hematuria and is they on daily prophylactic antibiotics. Patient has appointment with urology coming up soon. Urine was obtained which did show 3+ blood 5-10 red blood cells and 0-4 white blood cells. This was explained to the patient that this may not be an acute urinary tract infection however it did show trace bacteria and we are getting a culture of it. Patient wishes to be placed on a different antibiotic in the interim between now and her urology appointment. Patient will be placed on Bactrim and have her follow-up with her urologist at her previously scheduled time. Medical Records I reviewed the patient's medical records. Lab Data I reviewed the patient's lab results. Labs/Radiology: Laboratory Results Urine Color Yellow (Yellow) 09/14/22 10:32 Urine Appearance Clear (CLEAR) 09/14/22 10:32 Urine pH 7 (5-7) 09/14/22 10:32 Ur Specific Randle 1.005 (1.005-1.030) 09/14/22 10:32 Urine Protein Neg (Negative) 09/14/22 10:32 Urine Glucose (UA) Norm (Normal) 09/14/22 10:32 Urine Ketones Negative (Negative) 09/14/22 10:32 Urine Blood 3+ (Negative) H 09/14/22 10:32 Urine Nitrate Negative (Negative) 09/14/22 10:32 Urine Bilirubin Neg (Negative) 09/14/22 10:32 Urine Urobilinogen Norm mg/dL (Negative) 09/14/22 10:32 Ur Leukocyte Esterase Negative (Negative) 09/14/22 10:32 Urine RBC 5-10 /hpf (0-2) H 09/14/22 10:32 Urine WBC 0-4 /hpf (0-5) H 09/14/22 10:32 Ur Squamous Epith Cells 0-4 /hpf (0-5) H 09/14/22 10:32 Amorphous Sediment Not Reportable 09/14/22 10:32 Urine Bacteria Trace /hpf (NONE) 09/14/22 10:32 Discharge Plan Discharge Patient Disposition: Home Clinical Impression: Recurrent UTI Hematuria Qualifiers: Hematuria type: gross Qualified Code(s): R31.0 - Gross hematuria Condition: Stable Prescriptions: New Bactrim DS 800-160 mg tablet 1 tab PO BID Qty: 14 0RF Rx Instructions: give 3 days/wk (alternating days) Discharge Orders: Discharge ED (Routine); Ordered 09/15/22 Ordered By: Riley Pino Referrals: Chelsi Gallagher FNP [Primary Care Provider] - Patient Instructions: Hematuria - Female, Urinary Tract Infection - Women Activity Restrictions/Additional Instructions: Please take all antibiotics as directed. We will wait for your culture and sensitivity of your urine. Please follow-up with your urologist as previously scheduled. Coding Level of Care Code ED Program Professional for Carie Ross
[2022-09-14 13:18] VITALS: BP 120/52; PULSE 79; RESP 16; O2SAT 98
== END 2022-09-14 13:20 | disposition home or self-care (01) ==
PROVIDERS: Emergency Provider Emergency Medicine; PCP Nurse Practitioner Family
DX: N39.0 Urinary tract infection, site not specified (principal); R31.0 Gross hematuria; Z87.440 Personal history of urinary (tract) infections
CPT/HCPCS: 81001; 99283

== ENCOUNTER → 2022-10-15 09:30 | Outpatient (BNVA) | payer BC, SELFPAY | PROVIDERS: PCP Nurse Practitioner Family; Visit Provider Obstetrics & Gynecology | DX: Z11.3 Encounter for screening for infections with a predominantly sexual mode of transmission (principal); Z12.4 Encounter for screening for malignant neoplasm of cervix; R82.90 Unspecified abnormal findings in urine; Z01.419 Encounter for gynecological examination (general) (routine) without abnormal findings | CPT/HCPCS: 84315; 87086; 87491; 87591; 87624; 87661 ==

== ENCOUNTER → 2022-11-04 07:58 | Outpatient (BNVA) | payer BC, SELFPAY | PROVIDERS: PCP Nurse Practitioner Family; Visit Provider Obstetrics & Gynecology | DX: N94.6 Dysmenorrhea, unspecified (principal); N83.202 Unspecified ovarian cyst, left side | CPT/HCPCS: 76830 ==

== ENCOUNTER → 2022-11-11 08:34 | Outpatient (BNVA) | payer BC, SELFPAY | PROVIDERS: PCP Nurse Practitioner Family; Visit Provider Obstetrics & Gynecology | DX: N92.6 Irregular menstruation, unspecified (principal) | CPT/HCPCS: 81025 ==

== ENCOUNTER → 2022-12-09 11:15 | Outpatient (BNVA) | payer BC, SELFPAY | PROVIDERS: PCP Nurse Practitioner Family; Visit Provider Obstetrics & Gynecology | DX: Z34.91 Encounter for supervision of normal pregnancy, unspecified, first trimester (principal); Z3A.09 9 weeks gestation of pregnancy | CPT/HCPCS: 76817 ==

== ENCOUNTER → 2022-12-11 09:40 | Outpatient (BNVA) | payer BC, SELFPAY | PROVIDERS: PCP Nurse Practitioner Family; Visit Provider Nurse Practitioner Women's Health | DX: Z34.90 Encounter for supervision of normal pregnancy, unspecified, unspecified trimester (principal) | CPT/HCPCS: 80307; 84315; 84443; 85027; 86592; 86762; 86803; 86850; 86900; 87077; 87086; 87184; 87340; 87806 ==

== ENCOUNTER → 2023-01-08 08:30 | Outpatient (BNVA) | payer BC, SELFPAY | PROVIDERS: PCP Nurse Practitioner Family; Visit Provider Obstetrics & Gynecology | DX: Z34.80 Encounter for supervision of other normal pregnancy, unspecified trimester (principal) | CPT/HCPCS: 84315; 87491; 87591 ==

== ENCOUNTER → 2023-01-30 08:45 | Outpatient (BNVA) | payer BC, SELFPAY | PROVIDERS: PCP Nurse Practitioner Family; Visit Provider Nurse Practitioner Women's Health | DX: Z34.80 Encounter for supervision of other normal pregnancy, unspecified trimester (principal); N39.0 Urinary tract infection, site not specified | CPT/HCPCS: 82105; 84315; 87086 ==

== ENCOUNTER → 2023-02-27 09:24 | Outpatient (BNVA) | payer BC, SELFPAY | PROVIDERS: PCP Nurse Practitioner Family; Visit Provider Obstetrics & Gynecology | DX: Z34.90 Encounter for supervision of normal pregnancy, unspecified, unspecified trimester (principal) | CPT/HCPCS: 76805 ==

== ENCOUNTER → 2023-03-04 07:59 | Outpatient (BNVA) | payer BC, SELFPAY | PROVIDERS: PCP Nurse Practitioner Family; Visit Provider Obstetrics & Gynecology | DX: Z34.80 Encounter for supervision of other normal pregnancy, unspecified trimester (principal) | CPT/HCPCS: 84315; 87086 ==

== ENCOUNTER 2023-04-05 19:00 | Outpatient (CLI) | payer BC, SELFPAY ==
[2023-04-05 19:18] VITALS: BP 106/62; PULSE 72
[2023-04-05 19:28] VITALS: RESP 15; TEMP 36.4
[2023-04-05 19:43] VITALS: BMI 26.7
[2023-04-05 20:04] VITALS: BP 92/63; PULSE 80
[2023-04-05 20:14] LABS: Bilirubin Urine Neg (Negative); Blood Urine 2+ (Negative); Glucose Urine UA Norm (Normal); Ketones Urine Negative (Negative); Leukocyte Esterase Urine Negative (Negative); Nitrate Urine Negative (Negative); Protein Urine 1+ (Negative); Urine Appearance Clear (CLEAR); Urine Color Yellow (Yellow); Urobilinogen Urine 1 mg/dL (Negative); pH Urine 6.5 (5-7)
[2023-04-05 20:15] LABS: Add Urine Culture? Yes; Bacteria Urine 1+ /hpf; Mucus Urine 2+ /hpf; Squamous Epithelial Cell Urine 0-4 /hpf (0-5)
[2023-04-05 20:25] VITALS: BP 106/66; PULSE 75
--- NOTE | 2023-04-05 20:26 | PM.OBTRLD ---
OB L&D Triage Visit Information: Date of evaluation: 04/05/23 Comments/Additional reason(s) for visit: 37-year-old female at 25 weeks gestation G6, P5 in with complaints of abdominal pain just above the umbilicus. She denies nausea vomiting diarrhea constipation. She does states that her stool yesterday was hard and that she has not had a stool today. She states that her urine has had blood in it the whole and that she is being treated for UTI with daily antibiotics. She denies any fever headaches chest pain or shortness of breath. UA results reviewed with patient, does not indicate UTI but does have +2 blood. Encourage patient to increase hydration with water and cranberry juice. Advised patient to return to labor and delivery if pain increases. Patient understands and agrees Evaluation: Baseline heart rate: 130 Variability: Average (6-10) monitor accelerations: Present 10x10 monitor decelerations: None Laboratory results: Laboratory Tests 04/05/23 19:19 Urine Color Yellow Urine Appearance Clear Urine pH 6.5 Ur Specific Gravit y 1.020 Urine Protein 1+ H Urine Glucose (UA) Norm Urine Ketones Negative Urine Blood 2+ H Urine Nitrate Negative Urine Bilirubin Neg Urine Urobilinogen 1 H Ur Leukocyte Tiffany ase Negative Urine RBC 5-10 H Urine WBC 5-10 H Ur Squamous Epith Cells 0-4 H Amorphous Sediment Not Reportable Urine Bacteria 1+ H Urine Mucus 2+ Vital signs: Vital Signs - 24 hr 04/05/23 19:18 04/05/23 20:04 Pulse Rate 72 80 Blood Pressure 106/62 92/63 Comments: Physical exam?abdomen soft, fundus at the umbilicus and nontender. No epigastric pain elicited with palpation, nor an upper right or left quadrants. No suprapubic or CVA tenderness noted. Care HOMERO Calculator Estimated Delivery Date Method Current WG Current Estimate 07/14/23 LMP (Certain) 25w 5d Other Estimates 07/12/23 Ultrasound #1 26w 0d Final Diagnosis Final Diagnosis (1) Abdominal pain affecting : Plan: Will discharge patient from triage, advised to increase fluid hydration and fibers containing foods. Encouraged to return to labor and delivery if pain worsens. Status: Acute Code(s): O26.899 - Other specified related conditions, unspecified trimester; R10.9 - Unspecified abdominal pain (2) History of recurrent UTIs: Status: Acute Code(s): Z87.440 - Personal history of urinary (tract) infections (3) Gross hematuria: Status: Acute Code(s): R31.0 - Gross hematuria Coding Level of Care Code Acute Code for g Fwd Diagnoses Abdominal pain affecting O26.899; R10.9 History of recurrent UTIs Z87.440 Gross hematuria R31.0
== END 2023-04-05 20:40 | disposition home or self-care (01) ==
LOC: OPOB 19:02 → OBGYN 19:02
PROVIDERS: PCP Nurse Practitioner Family; Visit Provider Obstetrics & Gynecology
DX: O36.8190 Decreased fetal movements, unspecified trimester, not applicable or unspecified (principal); Z3A.25 25 weeks gestation of pregnancy; R10.9 Unspecified abdominal pain; Z87.440 Personal history of urinary (tract) infections; R31.0 Gross hematuria
CPT/HCPCS: 81001; 87086; 99211

== ENCOUNTER → 2023-04-22 10:34 | Outpatient (BNVA) | payer BC, SELFPAY | PROVIDERS: PCP Nurse Practitioner Family; Visit Provider Obstetrics & Gynecology | DX: Z34.80 Encounter for supervision of other normal pregnancy, unspecified trimester (principal) | CPT/HCPCS: 82950; 84315; 85025; 86850 ==

== ENCOUNTER → 2023-05-07 13:28 | Outpatient (BNVA) | payer BC, SELFPAY | PROVIDERS: PCP Nurse Practitioner Family; Visit Provider Obstetrics & Gynecology | DX: Z34.80 Encounter for supervision of other normal pregnancy, unspecified trimester (principal) | CPT/HCPCS: 76816; 84315; 87086 ==

== ENCOUNTER → 2023-06-03 08:05 | Outpatient (BNVA) | payer BC, SELFPAY | PROVIDERS: PCP Nurse Practitioner Family; Visit Provider Nurse Practitioner Women's Health | DX: Z34.80 Encounter for supervision of other normal pregnancy, unspecified trimester (principal); R82.90 Unspecified abnormal findings in urine | CPT/HCPCS: 84315; 87086 ==

== ENCOUNTER → 2023-06-17 07:58 | Outpatient (BNVA) | payer BC, SELFPAY | PROVIDERS: PCP Nurse Practitioner Family; Visit Provider Obstetrics & Gynecology | DX: Z34.80 Encounter for supervision of other normal pregnancy, unspecified trimester (principal) | CPT/HCPCS: 84315; 87081 ==

== ENCOUNTER 2023-06-27 22:34 | Outpatient (CLI) | payer BC, SELFPAY ==
[2023-06-27 22:35] VITALS: BMI 28.5
[2023-06-27 22:41] VITALS: BP 113/69; PULSE 69
[2023-06-27 22:56] VITALS: BP 114/68; PULSE 69
--- NOTE | 2023-06-27 23:08 | USR_ITS ---
PROCEDURE INFORMATION: Exam: US Biophysical Profile Without Non-Stress Test Exam date and time: 06/27/2023 11:50 PM Age: 38 years old Clinical indication: Other: Decreased movements; ; Additional info: Decreased movement. 37-38 weeks gestation, HOMERO 07/14/2023. TECHNIQUE: Imaging protocol: US biophysical profile without non-stress testing. COMPARISON: [place] [id number] 05/07/2023 1:35 PM FINDINGS: Single living fetus in cephalic position. heart activity documented by the technologist, 144 bpm. Biophysical profile was 11/26. Anterior placenta. Subjectively, on the provided images, amniotic fluid volume appears somewhat decreased for gestation. YANELI was not measured at this time. The deepest pocket of amniotic fluid measures 2 cm. Cervical length was estimated with transabdominal scanning, measuring approximately 4.0 cm. No definite cervical canal dilation or fluid on the provided images. It should be noted that the cervix is not well visualized on the provided images. measurements were not obtained at this time. Evaluation of anatomy was not performed at this time. The urinary bladder was not completely evaluated/imaged at this time. US/US OB BPP wo NST [id number] IMPRESSION: 1. Single living intrauterine fetus, details above. 2. Biophysical profile 11/26. 3. Subjectively, on the provided images, amniotic fluid volume appears somewhat decreased for gestation. See above. 4. Other details discussed above.
[2023-06-27 23:11] VITALS: BP 116/72; PULSE 71
[2023-06-27 23:26] VITALS: BP 119/70; PULSE 74
[2023-06-27 23:42] VITALS: BP 110/68; PULSE 73
[2023-06-28 00:49] VITALS: BP 104/60; PULSE 78
--- NOTE | 2023-06-28 01:15 | P.TNLD_ITS ---
OB L&D Triage Visit Information: Date of evaluation: 06/28/23 Reason for evaluation: decreased movement Comments/Additional reason(s) for visit: 38yo female G5, P4 with HOMERO 07/14/2023 at 37.4 weeks gestation who presented to labor and delivery triage with complaints of decreased movement x 2 days. Patient denied nausea, vomiting, leakage of fluid or vaginal bleeding. She states baby usually moves every day but has felt no movement in 48 hours. Patient denied any complications during this course to date, other than history of a chronic UTI which she has been on long-term Macrobid for prophylaxis. After extended external monitoring and ultrasound patient admits to feeling good movement and denies pelvic pain. EFM?category 1 BPP 11/26 . With an extended NST and a BPP of 11/26 patient admits to having good movement. In view of advanced maternal age and a term with this complaint I advise and recommend the patient returns in 12 hours for an NST. Patient understands and agrees to return at noon on today's date 06/28/2023. She states that this will not be a problem because she lives only 20 minutes away. I encouraged her to eat breakfast before coming to assist with good move ment. movement and kick count has been reviewed with this patient and she verbalizes understanding. Would consider induction of labor if NST is nonreactive are equivocal. Evaluation: monitor accelerations: Present 15x15 monitor decelerations: None Vital signs: Vital Signs - 24 hr 06/27/23 22:41 06/27/23 22:56 06/27/23 22:56 Pulse Rate 69 69 Blood Pressure 113/69 114/68 06/27/23 23:11 06/27/23 23:11 06/27/23 23:26 Pulse Rate 71 Blood Pressure 116/72 119/70 06/27/23 23:26 06/27/23 23:42 06/27/23 23:42 Pulse Rate 74 73 Blood Pressure 110/68 06/28/23 00:49 Pulse Rate 78 Blood Pressure 104/60 Care HOMERO Calculator Estimated Delivery Date Method Current WG Current Estimate 07/14/23 LMP (Certain) 37w 5d Other Estimates 07/12/23 Ultrasound #1 38w 0d Expected Delivery Route/Plan Vaginal Final Diagnosis Final Diagnosis (1) 37 or more weeks gestation of : Status: Acute (2) Advanced maternal age in multigravida: Status: Acute Code(s): O09.529 - Supervision of elderly multigravida, unspecified trimester (3) Decreased movement: Status: Acute Code(s): O36.8190 - Decreased movements, unspecified trimester, not applicable or unspecified (4) Rh negative status during : Status: Acute Qualifiers: Trimester: third trimester Qualified Code(s): O26.893 - Other specified related conditions, third trimester; Z67.91 - Unspecified blood type, Rh negative Code(s): O26.899 - Other specified related conditions, unspecified trimester; Z67.91 - Unspecified blood type, Rh negative (5) History of recurrent UTIs: Status: Acute Code(s): Z87.440 - Personal history of urinary (tract) infections Other Information/Follow up Patient to return to labor and delivery on 06/28/2023 at noon for nonstress test. Coding Level of Care Code Acute Code for Chg Fwd Diagnoses 37 or more weeks gestation of Advanced maternal age in multigravida O09.529 Decreased movement O36.8190 Rh negative status during in third trimester O26.893; Z67.91 Trimester: third trimester History of recurrent UTIs Z87.440
== END 2023-06-28 01:01 | disposition home or self-care (01) ==
LOC: OPOB 22:35 → OBGYN 22:38
PROVIDERS: PCP Nurse Practitioner Family; Visit Provider Obstetrics & Gynecology
DX: O09.529 Supervision of elderly multigravida, unspecified trimester (principal); O36.8190 Decreased fetal movements, unspecified trimester, not applicable or unspecified; Z3A.37 37 weeks gestation of pregnancy; Z67.91 Unspecified blood type, Rh negative; Z87.440 Personal history of urinary (tract) infections
CPT/HCPCS: 59025; 76819; 99211

== ENCOUNTER 2023-06-28 13:55 | Outpatient (CLI) | payer BC, SELFPAY ==
[2023-06-28 14:06] VITALS: BMI 28.8
[2023-06-28 14:07] VITALS: BP 102/62; PULSE 88
[2023-06-28 14:27] VITALS: BP 110/64; PULSE 78
[2023-06-28 14:40] VITALS: BP 110/64; PULSE 78
== END 2023-06-28 15:00 | disposition home or self-care (01) ==
LOC: OPOB 14:01 → OBGYN 14:02
PROVIDERS: PCP Nurse Practitioner Family; Visit Provider Obstetrics & Gynecology
DX: O36.8190 Decreased fetal movements, unspecified trimester, not applicable or unspecified (principal); Z3A.00 Weeks of gestation of pregnancy not specified
CPT/HCPCS: 59025

== ENCOUNTER → 2023-07-02 08:20 | Outpatient (BNVA) | payer BC, SELFPAY | PROVIDERS: PCP Nurse Practitioner Family; Visit Provider Nurse Practitioner Women's Health | DX: Z3A.34 34 weeks gestation of pregnancy (principal); Z34.93 Encounter for supervision of normal pregnancy, unspecified, third trimester | CPT/HCPCS: 82951; 82952; 84315 ==

== ENCOUNTER 2023-07-04 13:20 | Outpatient (CLI) | payer BC, SELFPAY ==
[2023-07-04] VITALS (7 sets, daily range): BP systolic 92–118; BP diastolic 52–61; PULSE 74–86; RESP 17; BMI 28.7
== END 2023-07-04 14:55 | disposition home or self-care (01) ==
LOC: OPOB 13:26 → OBGYN 13:26
PROVIDERS: PCP Nurse Practitioner Family; Visit Provider Obstetrics & Gynecology
DX: O26.899 Other specified pregnancy related conditions, unspecified trimester (principal); Z3A.00 Weeks of gestation of pregnancy not specified; R10.9 Unspecified abdominal pain
CPT/HCPCS: 59025; 99211

== ENCOUNTER 2023-07-04 21:17 | Inpatient (IN) | payer BC, SELFPAY ==
[2023-07-04 20:50] VITALS: BP 114/72; PULSE 75; TEMP 36.2
[2023-07-04] MEDS: lactated ringers 1,000 ML 999 ML IV ×2 (21:25→22:42)
[2023-07-04 21:30] LABS: Basophils % 0.1 %; Eosinophils # 0.2 10^3/uL (0.0-0.8); Hematocrit 36.9 % (36-47); Lymphocytes % 18.8 %; Mean Corpuscular HGB Conc 34.1 g/dL (30-55); Mean Corpuscular Hemoglobin 31.7 pg (27-33); Mean Corpuscular Volume 92.9 fl (85-98); Mean Platelet Volume 11.1 fL (7.4-10.4); Monocytes # 0.9 10^3/uL (0.2-0.9); Monocytes % 8.3 %; Neutrophils # 7.34 10^3/uL (1.8-7.7); Neutrophils % 70.5 %; Nucleated Red Blood Cells % 0 %; Platelet Count 148 10^3/cmm (157-399); Red Blood Count 3.97 10^6/uL (3.85-5.65); Red Cell Distribution Width 14.2 % (12.1-15.1); White Blood Count 10.41 10^3/uL (3.29-11.43)
[2023-07-04 21:40] VITALS: BMI 28.7
[2023-07-04] MEDS: lidocaine 2% INJ 20 mL INJECTION (22:35)
[2023-07-04] MEDS: oxytocin 10 unit/mL SDV 1 mL 20 UNIT IV (22:42)
--- NOTE | 2023-07-04 22:55 | P.PCNOB_ITS ---
Delivery Note: Date of delivery: July 04, 2023 Pre-delivery diagnoses: Term Post-delivery diagnoses: Term delivered Procedure: Spontaneous vaginal delivery Delivering Physician: Chris Elizondo MD Estimated blood loss (mL): 300 Pre-Delivery Course: Ms. Gallagher is a 38 year old patient with LMP 10/07/22, HOMERO 07/14/23, placing her at 38w 4d today. who has been receiving care from [facility]. She has been experiencing painful uterine contractions for the past 4 hours. The contractions are occurring at 4 minute intervals with approximately 30 second duration. She continues to feel movement CC: Onset of labor at term. HPI: Received appropriate care. Daily vitamins since start of care. labs have all been normal, including negative for HIV. She was found to negative for Group B Strep from screening at 36 weeks. She has gained approximately 16 lbs throughout the . She denies a history of HTN during . Glucose tolerance screening for gestational diabetes was negative. Delivery: The patient was noted to be complete and pushing, so was placed in the dorsal lithotomy position, prepped and draped in the usual sterile fashion for a vaginal delivery. Pt. Noted to have epidural anesthesia. At 2239 the patient delivered a viable term male infant weighing 3430 g with scores of 8 and 9 at one and five minutes, respectively. The vertex was delivered spontaneously over intact perineum. The patient was asked to push and the head delivered spontaneously in the ROSETTE position, over an intact perineum. A nuchal cord was checked and 1 loose nuchal cord noted, and delivered through. The anterior shoulder delivered easily and the posterior shoulder followed. The remainder of the was easily delivered and the oropharynx and nasopharynx was bulb suctioned. The was noted to have spontaneous cry and spontaneous movement of all four extremities. The cord was clamped x 2 and cut and noted to have 2 arteries and one vein. The was passed to the mother's where nursing personnel were in attendance. Cord blood sample was then obtained. The placenta delivered intact spontaneously and the uterus was explored. 20 units of Pitocin was placed in the IV bag to firm the uterus. Examination of the cervix and vaginal vault did not reveal any lacerations. A vaginal pack was then placed. Examination of the perineum showed no laceration. The vaginal pack was then removed. The patient tolerated this procedure well, and recovered in L&D with her infant [or note if taken to NICU]. All sponge and needle counts were correct. History History History 10 Term 4 0 Miscarriages/Ectopic 5 Living Children 4 Coding Level of Care Code Acute Code for Chg Fwd
--- NOTE | 2023-07-04 22:55 | PM.OPHPUD ---
Labor & Delivery H&P Update Date of Procedure: July 04, 2023 Date H&P Performed: 07/02/23 H&P update information: I have reviewed H&P completed within last 30 days, I have examined patient prior to procedure and Changes to prior documentation as noted here (/vx/0/IM) Admission Diagnosis:
[2023-07-04 23:02] VITALS: BP 109/69; PULSE 81
[2023-07-04 23:17] VITALS: BP 109/70; PULSE 76
[2023-07-04 23:32] VITALS: BP 110/69; PULSE 78
[2023-07-04 23:47] VITALS: BP 118/66; PULSE 79
[2023-07-05] VITALS (12 sets, daily range): BP systolic 107–122; BP diastolic 60–72; PULSE 64–97; RESP 15–18; TEMP 36.7–36.9; O2SAT 97–99
[2023-07-05 11:18] LABS: Hematocrit 36.9 % (36-47); Mean Corpuscular HGB Conc 34.1 g/dL (30-55); Mean Corpuscular Hemoglobin 31.7 pg (27-33); Mean Corpuscular Volume 92.7 fl (85-98); Mean Platelet Volume 11.6 fL (7.4-10.4); Platelet Count 135 10^3/cmm (157-399); Red Blood Count 3.98 10^6/uL (3.85-5.65); Red Cell Distribution Width 14.1 % (12.1-15.1)
--- NOTE | 2023-07-05 12:13 | P.PN_ITS ---
Subjective 2 Subjective: Ms. Gallagher is a 38 year old status post spontaneous vaginal delivery. No complaints Vitals/I&O/Wt Last Vital Signs Temp 98.4 F 07/05/23 07:03 Pulse 65 07/05/23 07:03 Resp 16 07/05/23 07:03 BP 122/60 07/05/23 07:03 Pulse Ox 99 07/05/23 06:30 O2 Del Method Room Air 07/05/23 06:30 07/04/23 07/05/23 07/05/23 22:59 06:59 14:59 Output Total 700 / 700 Balance -700 / -700 Weight last 48 hrs Weight 73.482 kg Physical Exam 2 Narrative: GA; alert and oriented x 3 HEENT: normal Breasts: engorged Nipples - skin intact Lungs; clear to auscultation Heart: regular rhythm, no murmurs. Abd: Appropriately tender. BS+. Uterine fundus below umbilicus. No Fundal Tenderness. Perineum: normal lochia. Extremities: no edema, no cyanosis, no tenderness. Data 07/05/23 10:45 A&P Assessment and plan (1) Term delivered: Ms. Gallagher 38-year-old female is status post spontaneous vaginal delivery. she is afebrile hemodynamically stable day 1. Ambulating without difficulty. Tolerating diet well. Overnight observation uneventful. Attestations 2 Medical Necessity Statement*: My professional opinion per admitting diagnosis Coding Level of Care Code Acute Code for Chg Fwd Diagnoses Term delivered O80
[2023-07-06 05:04] VITALS: BP 114/75; PULSE 80; RESP 16; TEMP 36.7; O2SAT 99
[2023-07-06 08:41] VITALS: BP 101/64; PULSE 65; RESP 16; TEMP 36.9
--- NOTE | 2023-07-06 10:26 | PM.OBGYDC ---
Discharge Providers MARKETING REPRESENTATIVE Date of Admission: 07/04/23 21:17 Date of Discharge: 07/06/23 Attending Provider at Admission: Chris Elizondo MD Attending Provider at Discharge: Chris Elizondo MD Primary Care Provider: NILSON Vega Diagnoses at Discharge Discharge Diagnosis (1) Term delivered: Status: Acute Reason for Visit Reason for Visit: Contractions Hospital Course Hospital Course Ms. Gallagher is a 38 year old patient with LMP 10/07/22, HOMERO 07/14/23, placing her at 38w 4d today. who has been receiving care from [facility]. She came to labor and delivery in active labor and progressed to have a spontaneous vaginal delivery without complications. She delivered a viable term male weighing 3430 g with scores of 8 and 9 at one and five minutes, respectively. observation uneventful. She is afebrile hemodynamically stable day 2. Tolerating diet well. Ambulating without difficulty. She was counseled regarding pelvic rest for 6 weeks (no sex, no tampons, no vaginal douches). Return to the emergency room if any fever, increased bleeding or pain. Information Peripartum Data: Infant Delivery Method: Vaginal Physical Exam Narrative: GA; alert and oriented x 3 HEENT: normal Breasts: engorged Nipples - skin intact Lungs; clear to auscultation Heart: regular rhythm, no murmurs. Abd: Appropriately tender. BS+. Uterine fundus below umbilicus. No Fundal Tenderness. Perineum: normal lochia. Extremities: no edema, no cyanosis, no tenderness. History History History 10 Term 4 0 Miscarriages/Ectopic 5 Living Children 4 Discharge Data Studies Completed and Pending Laboratory Results WBC 11.30 10^3/uL (3.29-11.43) 07/05/23 10:45 RBC 3.98 10^6/uL (3.85-5.65) 07/05/23 10:45 Hgb 12.60 g/dL (11.27-16.99) 07/05/23 10:45 Hct 36.9 % (36-47) 07/05/23 10:45 MCV 92.7 fl (85-98) 07/05/23 10:45 MCH 31.7 pg (27-33) 07/05/23 10:45 MCHC 34.1 g/dL (30-55) 07/05/23 10:45 RDW 14.1 % (12.1-15.1) 07/05/23 10:45 Plt Count 135 10^3/cmm (157-399) L 07/05/23 10:45 MPV 11.6 fL (7.4-10.4) H 07/05/23 10:45 Neut % (Auto) 70.5 % 07/04/23 21:20 Lymph % (Auto) 18.8 % 07/04/23 21:20 Pen[place] % (Auto) 8.3 % 07/04/23 21:20 Eos % (Auto) 2.0 % 07/04/23 21:20 Baso % (Auto) 0.1 % 07/04/23 21:20 Neut # (Auto) 7.34 10^3/uL (1.8-7.7) 07/04/23 21:20 Lymph # (Auto) 2.0 10^3/uL (0.8-4.8) 07/04/23 21:20 Penning[place] # (Auto) 0.9 10^3/uL (0.2-0.9) 07/04/23 21:20 Eos # (Auto) 0.2 10^3/uL (0.0-0.8) 07/04/23 21:20 Baso # (Auto) 0.0 10^3/uL (0.0-0.1) 07/04/23 21:20 Nucleated RBC % (auto) 0 % 07/04/23 21:20 Nucleated RBCs # 0.0 /100WBC 07/04/23 21:20 Blood Type A Negative 07/04/23 21:20 Rho(D) Type Rh negative 07/04/23 21:20 Antibody Screen Negative 07/04/23 21:20 Vitals Last Vital Signs Temp 98.4 F 07/06/23 08:41 Pulse 65 07/06/23 08:41 Resp 16 07/06/23 08:41 BP 101/64 07/06/23 08:41 Pulse Ox 99 07/06/23 05:04 O2 Del Method Room Air 07/06/23 05:04 Results Labs OB ([facility]): Obstetrics US 05/07/23 Obstetrics US/Biophysical Profile 06/27/23 Blood Type A Negative 07/04/23 Antibody Screen Negative 07/04/23 Hct 36.9 % (36-47) 07/05/23 Hgb 12.60 g/dL (11.27-16.99) 07/05/23 Rho(D) Type Rh negative 07/04/23 Plt Count 135 10^3/cmm (157-399) L 07/05/23 Hep Bs Antigen Non-reactive (Nonreactive) 12/11/22 Hepatitis C Antibody Non-reactive (Nonreactive) 12/11/22 Rubella IgG Antibody 52.4 IU/mL (0.0-10.0) H 12/11/22 RPR Nonreactive (Nonreactive) 12/11/22 HIV 1&2 Ab & HIV 1 Ag Non-reactive (Non-Reactiv) 12/11/22 TSH 0.91 uIU/mL (0.27-4.20) 12/11/22 C.trachomatis RNA (TMA) Not detected (NOT DETECTED) 01/08/23 N.gonorrhoeae RNA (TMA) Not detected (NOT DETECTED) 01/08/23 T. vaginalis Amp RNA Not detected (NOT DETECTED) 01/08/23 Chlamydia/GC Comment See note 01/08/23 Gest Glucose Tolerance mg/dL 07/02/23 HCG, Qual Positive (Negative) H 11/11/22 Urine Opiates Screen Negative ng/mL (Negative) 12/11/22 Ur Barbiturates Screen Negative ng/mL (Negative) 12/11/22 Ur Phencyclidine Scrn Negative ng/mL (Negative) 12/11/22 Ur Amphetamines Screen Negative ng/mL (Negative) 12/11/22 U Benzodiazepines Scrn Negative ng/mL (Negative) 12/11/22 Urine Cocaine Screen Negative ng/mL (Negative) 12/11/22 U Marijuana (THC) Screen Negative ng/mL (Negative) 12/11/22 Micro Urine Specimen 06/03/23 Pap Smear Interpret See note A 10/15/22 Discharge Plan Discharge Patient Disposition: Home Condition: Stable Prescriptions: New acetaminophen 325 mg capsule 325 mg PO Q4H PRN (Reason: fever or pain) Qty: 60 0RF ibuprofen 800 mg tablet 800 mg PO TID PRN (Reason: pain) Qty: 60 0RF Continued mecobalamin (vitamin B12) 1,000 mcg tablet,chewable 1,000 mcg PO DAILY nitrofurantoin monohyd/m-cryst [Macrobid] 100 mg capsule 100 mg PO DAILY Qty: 30 6RF Rx Instructions: must administer with a meal/food prenat.vits,jonathan,jle-gwov-ttpns Tablet 1 tab PO DAILY Qty: 30 12RF Discharge Orders: Discharge Order (Routine); Ordered 07/06/23 Ordered By: Chris Elizondo Discharge Diet: Usual diet Discharge Activity: Limit activity as instructed Patient Instructions: Depression (DC), Bleeding (DC), Opioid Safety (DC), Preeclampsia and Eclampsia After Delivery (GEN), Hemorrhage (DC), OB Discharge Report, OB Food/Drug Interaction Guide, OB Care at Home, Opioid Safety, OB Home Care, OB Vaginal Deliveries - [facility], Abnormal Bleeding Activity Restrictions/Additional Instructions: 1. Please call [facility] on next working day to make your appointment in 6 weeks. 2. Please stay home until you come back to the clinic on first post-hospatilization check up. 3. Please follow instructions on your medications CAREFULLY. 4. If you have abdominal incision, do not cover it unless dressing is necessary because of drainage. OK to shower, but avoid bath. Leave steri-strips until they fall off. If they are still on one week after surgery, you may remove them. 5. If you had vaginal surgery or vaginal repair, Dr. Elizondo may instruct you to take SITZ bath. 6. Yellow, blood tinged odorous vaginal discharge is usually normal after hysterectomy or vaginal surgeries. 7. No SEXUAL INTERCOURSE, tampons, or douches until you are completely released from the post-operative care. 8. Avoid constipation by eating right and maybe using some Metamucil or Milk of Magnesia. 9. All prescription refills are given during the working hours. Please do no wait till it runs out. Call the clinic at [phone] before your medication runs out. The clinic will get in touch with your doctor to prescribe medications if necessary. 10. Please remain within 40 mile radius from our hospital because emergencies do happen now and then during the post-operative period. 11. If you have stairs at home, take one step at a time slowly and minimize the number of trips. It helps to stay in one floor for the next few days. No lifting except what you can lift by one hand until you are released from the post-operative care. 12. Driving is discouraged until you are well healed. It may be 3-4 weeks before you feel strong enough to drive. You should be able to turn and look through the rear window without pain and you should be able to push the brake pedal very hard without pain before you drive. No fast rules, but SAFETY should be your primary concern. DO NOT drive if you are on sedating medications such as narcotics. 13. Call the clinic (during working hours) to make urgent appointment or go to the Emergency room, if any of the following occurs: i. Vaginal bleeding becomes heavy, more than a period. ii. Incision becomes red and sore, or drains pus. iii. Your TEMPERATURE is over 100.4F or you have chill. iv. IV site becomes red and swollen (a little ``knot?? is usually OK) v. Persistent nausea and vomiting vi. Persistent constipation or diarrhea vii. Rash or allergic reaction to medications. Discharge Attestations MARKETING REPRESENTATIVE Time Spent in Discharge Care*: greater than 30 min Coding Level of Care Code Acute Code for Chg Fwd Diagnoses Term delivered O80
[2023-07-06 12:02] VITALS: BP 108/54; PULSE 74; RESP 16; TEMP 36.7
== END 2023-07-06 12:04 | disposition home or self-care (01) | DRG 807 ==
LOC: OPOB 07-05 08:09 → OBGYN 07-05 08:10
PROVIDERS: Admitting Provider Obstetrics & Gynecology; PCP Nurse Practitioner Family; Visit Provider Obstetrics & Gynecology
DX: O69.81X0 Labor and delivery complicated by cord around neck, without compression, not applicable or unspecified (principal); Z37.0 Single live birth; Z3A.38 38 weeks gestation of pregnancy
CPT/HCPCS: 36415; 59025; 59409; 85025; 85027; 86850; 86900; 99211; J7120

== ENCOUNTER 2023-10-02 08:33 | Day surgery (SDC) | payer BC, SELFPAY ==
--- NOTE | 2023-10-01 22:53 | W.PM.OPSFHP ---
Same Day Surgery H&P Indication for Procedure/HPI DATE OF PROCEDURE: October 01, 2023 CHIEF COMPLAINT/INDICATIONFOR SURGICAL PROCEDURE: desires permanent sterilization PREOP DIAGNOSIS: desires permanent sterilization PLANNED PROCEDURE: Operation Date: 10/02/23 10:35 Proposed Procedures p Laparoscopic partial Salpingectomy 21912,Z30.2(Bilateral) - Boy Bernabe MD 38 y.o. A5 desires permanent sterilization Medications/Allergies* Home Medications Medication Instructions Recorded Confirmed Type mecobalamin (vitamin B12) 1,000 1,000 mcg PO DAILY 06/03/23 10/01/23 History mcg chewable tablet nitrofurantoin 100 mg PO DAILY 10/01/23 10/01/23 History monohydrate/macrocrystals 100 mg capsule Allergies/Adverse Reactions Allergy/AdvReac Type Severity Reaction Status Date / Time No Known Allergies Allergy Verified 10/01/23 09:12 Pertinent History/Comorbid Conditions* Medical History (Updated 08/24/23 @ 21:04 by Boy Bernabe MD) Gross hematuria Recurrent UTI Surgical History (Updated 07/11/21 @ 13:23 by Erik Stanford MD) No significant past surgical history Family History (Updated 10/15/22 @ 08:18 by Nirmala Angulo) Colon cancer Father Diabetes Family/Other Hyperlipidemia Mother Cancer Family/Other colon Hypertension Mother Stroke Grandfather Denies family history of Ovarian cancer Heart disease Breast cancer Uterine cancer Thyroid disease Pertinent Exam Findings alert, oriented x 3, clear to auscultation bilaterally and regular rate & rhythm Recommendations Surgery/Procedure today Coding Level of Care Code Acute Code for Chg Fwd Time Spent (min) 20
[2023-10-02] VITALS (11 sets, daily range): BP systolic 100–131; BP diastolic 44–86; PULSE 56–71; RESP 10–18; TEMP 36.2–36.6; O2SAT 97–100; BMI 25.9
--- NOTE | 2023-10-02 09:13 | W.PM.OPSUD ---
Surgery/Procedure H&P Update DATE OF PROCEDURE: October 02, 2023 DATE H&P PERFORMED: 08/13/23 H&P UPDATE INFORMATION: I have reviewed H&P completed within last 30 days, I have examined patient prior to procedure and No changes to prior documentation PREOP DIAGNOSIS: desires permanent sterilization PLANNED PROCEDURE: Operation Date: 10/02/23 10:35 Proposed Procedures p Laparoscopic partial Salpingectomy 77675,Z30.2(Bilateral) - Boy Bernabe MD
[2023-10-02 09:20] LABS: OR HCG Qualitative Urine Negative (Negative)
[2023-10-02] MEDS: sodium chloride 0.9% 1,000 ML 30 ML IV (09:36)
[2023-10-02] MEDS: scopolamine 1.5 Patch 1 PATCH TRANSDERMA (09:39)
[2023-10-02] MEDS: diphenhydrAMINE 50 mg/mL SDV 1mL 12.5 MG IVP (09:40)
[2023-10-02] MEDS: ondansetron 2 mg/ML SDV 2 mL 4 MG IVP (09:40)
--- NOTE | 2023-10-02 10:35 | ANES.PREANE2 ---
Pre-Anesthetic Assessment Height/Weight: Height 1.57 m Weight 64.41 kg Temp Pulse Resp BP Pulse Ox O2 Del Method 97.3 F L 61 16 105/58 97 Room Air 10/02/23 09:11 10/02/23 09:11 10/02/23 09:11 10/02/23 09:11 10/02/23 09:11 10/02/23 09:13 Preop Diagnosis: desires permanent sterilization Operation Date: 10/02/23 10:35 Proposed Procedures p Laparoscopic partial Salpingectomy 71563,Z30.2(Bilateral) - Boy Bernabe MD Familial anesthetic complications: none Was Beta Estefanía taken within 24 hours: N/A Was Clonidine taken within 24 hours: N/A Last intake: Intake Last Liquid Date 10/01/23 Last Liquid Time 20:30 Last Solid Date 10/01/23 Last Solid Time 20:30 Social No alcohol and No tobacco Exam alert, oriented x 3, clear to auscultation bilaterally and regular rate & rhythm Airway Submandibular: within normal limits Cervical ROM: within normal limits Mallampati: Class II Dentition: full Neuropsych Neuropathy Anesthetic Plan ASA status: 2 Anesthesia: General Medications/Allergies Home Medications Medication Instructions Recorded Confirmed Last Taken Type mecobalamin (vitamin B12) 1,000 1,000 mcg PO DAILY 06/03/23 10/02/23 09/18/23 History mcg chewable tablet nitrofurantoin 100 mg PO DAILY 10/01/23 10/02/23 09/18/23 History monohydrate/macrocrystals 100 mg capsule oxycodone-acetaminophen 10 mg-325 1 tab PO BID PRN pain #14 tabs 10/02/23 Unknown Rx mg tablet (Percocet) Allergies Allergy/AdvReac Type Severity Reaction Status Date / Time No Known Allergies Allergy Verified 10/01/23 09:12 Current Medications Generic Name Dose Route Start Last Admin Trade Name Freq PRN Reason Stop Dose Admin Diphenhydramine HCl 12.5 mg 10/02/23 08:44 10/02/23 09:40 Diphenhydramine 50 Mg/Ml Sdv 1ml IVP 12.5 mg ONCE PRN Administration PONV Sodium Chloride 1,000 mls @ 30 mls/hr 10/02/23 08:45 10/02/23 09:36 Sodium Chloride 0.9% IV 10/03/23 08:44 30 mls/hr .Q24H MIRLANDE Administration Ondansetron HCl 4 mg 10/02/23 08:44 10/02/23 09:40 Ondansetron 2 Mg/Ml Sdv 2 Ml IVP 4 mg ONCE PRN Administration NAUSEA AND VOMITING PFSH Anesthesia Medical History Gross hematuria Recurrent UTI Surgical History No significant past surgical history Family History Family/Other Cancer colon Diabetes Father Colon cancer Mother Hyperlipidemia Hypertension Grandfather Stroke Denies family history of Ovarian cancer Heart disease Breast cancer Uterine cancer Thyroid disease Data Anesthesia Cardiac Studies: No Data to Display
--- NOTE | 2023-10-02 11:05 | P.OP_ITS ---
Operative Report Date of procedure: October 02, 2023 Pre-op diagnosis: desires permanent sterilization Post-op diagnosis: same Post-op findings: normal uterus, tubes, and ovaries Procedure done: laparoscopic bilateral partial salpingectomy Implants: none Specimens removed/disposition: bilateral partial fallopian tube segments Surgeon: Boy Bernabe MD Anesthesia: General Estimated blood loss (mL): 5 Complications: none Findings: normal uterus, tubes, and ovaries Condition: stable Disposition: PACU Brief History: 38 y.o. desires permanent sterilization Procedure: Informed consent was obtained. The patient was taken to the OR and placed on the table. General endotracheal anesthesia was induced. The patient was then placed in dorsolithotomy position. The abdomen and perineum were then prepped and draped in the usual fashion. A 5 mm subumbilical skin incision was made. A 5 mm trocar with sheath was then inserted into the peritoneal cavity under direct visualization with the laparoscope. After confirming intraperitoneal position, pneumoperitoneum was achieved. Two separate 5 mm incisions were made in the right and left mid- quadrants. 5 mm trocars with sheaths were then inserted into the peritoneal cavity under direct visualization with the laparoscope. The right fallopian tube was then identified to its fimbrial end. Starting at the fimbrial end, the mesosalpinx was then coagulated and cut using the Ligasure. A 3-4 cm portion of the right fallopian tube was excised and removed via one of the ports. This was sent to pathology. There was no bleeding seen. Similarly, the left fallopian tube was identified to its fimbrial end. A 3-4 cm portion of the left fallopian tube was excised and removed, sent to pathology. There was no bleeding. All instruments were then removed from the peritoneal cavity after the pneumoperitoneum was allowed to escape. The skin incisions were closed using 3- O chromic in subcuticular fashion. Dermabond was applied. The patient was then placed supine and awakened, taken the the PACU in good condition. Postop condition: stable EBL: 5 cc Complications: none Sponge, needles, and instruments counts correct x two
--- NOTE | 2023-10-02 11:57 | SUR.PHASEII ---
11:55 abdominal surgical incisions clean and dry, no redness or drainage.
--- NOTE | 2023-10-02 13:51 | ANE.PACU2 ---
Inpatient post-anesthesia follow up: Airway intact: Yes Vital signs: Temperature 97.8 F Pulse Rate 67 Respiratory Rate 16 Blood Pressure 112/44 Pulse Oximetry 99 Oxygen Delivery Me thod Room Air Oxygen Flow Rate 10 Fraction of Inspir ed Oxygen Hydration adequate: Yes Nausea and vomiting: No Pain level: 2 Mental status: Baseline
== END 2023-10-02 12:15 | disposition home or self-care (01) ==
PROVIDERS: Anesthesiology; PCP Nurse Practitioner Family; Visit Provider Obstetrics & Gynecology
PROC: (CPT 58661; principal; 2023-10-02 10:25)
DX: Z30.2 Encounter for sterilization (principal)
CPT/HCPCS: 58661; 81025; 88302; J1100; J1200; J1885; J2250; J2405; J2704; J2710; J3010; J3490; J7030

== ENCOUNTER 2024-02-07 17:22 | Emergency (ER) | payer BC, SELFPAY ==
[2024-02-07 17:30] VITALS: BP 113/57; PULSE 72; RESP 16; TEMP 36.8; O2SAT 99; BMI 25.6
--- NOTE | 2024-02-07 20:02 | ED_ITS ---
HPI - Extremity Problem 2 General: Chief complaint: Extremity Injury, Upper Stated complaint: L. shoulder pain, and neck pain Time Seen by Provider: 02/07/24 19:34 History of Present Illness: Bandar Gallagher is a 38-year-old female that presents to the emergency department with left paraspinal/scapular pain on the left. She denies trauma. She states that pain began a week ago. Describes it as sharp. It is worse with movement. Does not radiate. Denies numbness tingling or weakness in the arm she denies prior injury or prior events like this. Denies chronic medical conditions Denies routine medicines. Related Data Home Medications Medication Instructions Recorded Confirmed mecobalamin (vitamin B12) 1,000 1,000 mcg PO DAILY 06/03/23 10/08/23 mcg chewable tablet nitrofurantoin 100 mg PO DAILY 10/01/23 10/08/23 monohydrate/macrocrystals 100 mg capsule Previous Rx's Medication Instructions Recorded oxycodone-acetaminophen 10 mg-325 1 tab PO BID PRN pain #14 tabs 10/02/23 mg tablet (Percocet) ketorolac 10 mg tablet 10 mg PO Q8H PRN pain 4 days #14 02/07/24 tabs methocarbamol 1,000 mg tablet 1,000 mg PO Q6H 72 hours #12 tabs 02/07/24 Allergies Allergy/AdvReac Type Severity Reaction Status Date / Time No Known Allergies Allergy Verified 10/08/23 07:52 Review of Systems 2 General: Reports: 10 or more systems reviewed and unremarkable except in HPI and below PFSH ED 2 PFSH: Medical History Gross hematuria Recurrent UTI Surgical History No significant past surgical history Family History Family/Other Cancer colon Diabetes Father Colon cancer Mother Hyperlipidemia Hypertension Grandfather Stroke Denies family history of Ovarian cancer Heart disease Breast cancer Uterine cancer Thyroid disease Physical Exam 2 Const: COMMON NORMALS: no acute distress, patient oriented x3 and alert G ENERAL APPEARANCE: cooperative ORIENTATION/CONSCIOUSNESS: Yes awake, Yes oriented to person, Yes oriented to place and Yes oriented to time Neck/C-Spine: COMMON NORMALS: full ROM GENERAL: Yes normal visual inspection Lymph: LYMPHATIC: no lymphadenopathy noted Chest: COMMONS NORMALS: normal inspection of the chest Breast/axilla inspection: Yes no chest deformity, asymmetry, normal contours, no nodules, masses, tenderness Resp: COMMON NORMALS: normal respiratory effort, No retractions and No use of accessory muscles EFFORT & INSPECTION: Yes able to speak in complete sentences and Yes symmetric chest movement Cardio: COMMON NORMALS: regular rate and Peripheral pulses 2+ throughout R ATE: regular rate PERIPHERAL PULSES: Peripheral pulses 2+ throughout GI: COMMON NORMALS: Normal to inspection, nondistended, normoactive bowel sounds present, Soft to palpation, non-tender and No hepatosplenomegaly present INSPECTION: Yes normal to inspection PALPATION: Yes Soft to palpation and Yes No hepatosplenomegaly present RECTAL EXAM: deferred Back/Pelvis: COMMON NORMALS: thoracic and lumbar spine normal to inspection, no thoracic nor lumbar tenderness and thoraco-lumbar ROM normal BACK IMAGE (FEMALE): 1. Pain Extremity: COMMON NORMALS: normal to inspection GENERAL: Yes normal exam except as noted Neuro: COMMON NORMALS: patient oriented x3 SENSORIUM/ORIENTATION: Yes alert, Yes oriented to person, Yes oriented to place and Yes oriented to time CRANIAL NERVES: Yes CN normal except as noted Psych: COMMON NORMALS: mental status grossly normal, Normal thought process present, cooperative, activity/motor behavior normal, denies homicidal ideation and denies suicidal ideation THOUGHT PROCESS: Normal thought process present Skin: COMMON NORMALS: no rashes or lesions noted, no wounds and turgor normal GENERAL SKIN EXAM: no rashes or lesions noted and turgor normal Course 2 Vital Signs: Vital signs: Vital Signs Temperature 98.2 F 02/07/24 17:30 Pulse Rate 72 02/07/24 17:30 Respiratory Rate 16 02/07/24 17:30 Blood Pressure 113/57 02/07/24 17:30 Pulse Oximetry 99 02/07/24 17:30 Oxygen Delivery Me thod Room Air 02/07/24 17:30 MDM - Extremity (Nontraumatic) Medical Decision Making Patient was evaluated in the emergency department today for complaints of upper back pain. Describes as muscle spasm. It is sharp with movement. She denies injury. Denies radicular symptoms. I do not think she warrants any diagnostic evaluation and I reviewed this with her. I am going to treat her pain. She is receiving Decadron, Toradol, Robaxin and will go home with similar type medicines. She needs to follow-up with her primary care doctor if she does not get better. She is agreeable All questions answered No radiology studies performed this visit Discharge Plan Discharge Patient Disposition: Home Clinical Impression: Paraspinal muscle spasm Condition: Stable Prescriptions: New methocarbamol 1,000 mg tablet 1,000 mg PO Q6H 3 Days Qty: 12 0RF ketorolac 10 mg tablet 10 mg PO Q8H PRN (Reason: pain) 4 Days Qty: 14 0RF No Action mecobalamin (vitamin B12) 1,000 mcg tablet,chewable 1,000 mcg PO DAILY nitrofurantoin monohyd/m-cryst 100 mg capsule 100 mg PO DAILY Percocet 10-325 mg tablet 1 tab PO BID PRN (Reason: pain) Qty: 14 0RF Discharge Orders: Discharge ED (Routine); Ordered 02/07/24 Ordered By: Skip Willis Referrals: Chelsi Gallagher FNP [Primary Care Provider] - Discharge Diet: Advance as tolerated Discharge Activity: Resume usual activity Patient Instructions: Muscle Spasm (ED), Back Pain (ED), Pain Management Activity Restrictions/Additional Instructions: Please take medications as prescribed Please return to the emergency department for new concerning or worsening symptoms Please follow-up with primary care if symptoms persist Coding Level of Care Code ED Corporate Statistical Financial Analyst for Carie Ross
[2024-02-07] MEDS: ketorolac 60 mg/2 mL INJ IM (20:28)
[2024-02-07] MEDS: dexamethasone 10 mg/mL INJ IM (20:28)
[2024-02-07] MEDS: methocarbamol 750 mg Tablet PO (20:31)
[2024-02-07 20:36] VITALS: PULSE 69; O2SAT 100
[2024-02-07 20:37] VITALS: PULSE 69; O2SAT 100
--- NOTE | 2024-02-07 20:37 | PC.NURSE ---
PATIENT GIVEN METHOCARBAMOL TO TAKE WHEN SHE GETS HOME. PATIENT AGREED TO NOT DRIVE AND TAKE MEDICATION.
== END 2024-02-07 20:38 | disposition home or self-care (01) ==
PROVIDERS: Emergency Provider Nurse Practitioner; PCP Nurse Practitioner Family
DX: M62.830 Muscle spasm of back (principal)
CPT/HCPCS: 96372; 99284; J1100; J1885

== ENCOUNTER 2024-05-25 20:42 | Emergency (ER) | payer BC, SELFPAY ==
[2024-05-25 20:53] VITALS: BP 107/66; PULSE 84; RESP 18; TEMP 36.6; O2SAT 96; BMI 25.9
--- NOTE | 2024-05-25 21:26 | W.ED.ABDPA2 ---
HPI - Abdominal Pain General: Chief Complaint: Abdominal Pain Stated Complaint: R lower abd pain Time Seen by Provider: 05/25/24 21:20 History of Present Illness: Patient presents to the ER with complaints of lower right sided abdominal pain started yesterday at about noon. Has stayed constant for much the entire time. Patient has had a bowel movement and did not make it better or worse. Patient has never had pain in this area before, patient still has her appendix. Patient denies any fever chills nausea vomiting Related Data Date of Last Menstrual Period: 05/23/24 Home Medications ?Medication ?Instructions ?Recorded ?Confirmed mecobalamin (vitamin B12) 1,000 1,000 mcg PO DAILY 06/03/23 10/08/23 mcg chewable tablet nitrofurantoin 100 mg PO DAILY 10/01/23 10/08/23 monohydrate/macrocrystals 100 mg capsule Previous Rx's ?Medication ?Instructions ?Recorded oxycodone-acetaminophen 10 mg-325 1 tab PO BID PRN pain #14 tabs 10/02/23 mg tablet (Percocet) amoxicillin 875 mg-potassium 1 tab PO Q12H #20 tabs 05/25/24 clavulanate 125 mg tablet Allergies Allergy/AdvReac Type Severity Reaction Status Date / Time No Known Allergies Allergy Verified 05/25/24 20:56 Review of Systems General: Reports: 10 or more systems reviewed and unremarkable except in HPI and below PFSH ED PFSH: Medical History Gross hematuria Recurrent UTI Surgical History No significant past surgical history Family History Family/Other Cancer colon Diabetes Father Colon cancer Mother Hyperlipidemia Hypertension Grandfather Stroke Denies family history of Ovarian cancer Heart disease Breast cancer Uterine cancer Thyroid disease Female Reproductive History: Date of last menstrual period: 05/23/24 Physical Exam Const: COMMON NORMALS: no acute distress, average body habitus, patient oriented x3, no limitations, healthy appearing, alert and well nourished HENMT: COMMON NORMALS: normocephalic, atraumatic, hearing grossly normal bilaterally, external ears normal, Normal external nose present and moist oral mucous membranes HEAD & SCALP: normocephalic and atraumatic NOSE: Normal external nose present EXTERNAL EAR: Yes external ears normal Neck/C-Spine: COMMON NORMALS: no JVD Chest: COMMONS NORMALS: normal inspection of the chest and normal palpation of entire chest wall Resp: COMMON NORMALS: normal respiratory effort, No retractions, No use of accessory muscles and clear to auscultation bilaterally AUSCULTATION: clear to auscultation bilaterally Cardio: COMMON NORMALS: no JVD, regular rate, regular rhythm, S1 normal heart sound present, S2 normal heart sound present, No gallops present (Cardio), No clicks present (Cardio), No murmurs present (Cardio) and No rub (Cardio) RATE: regular rate RHYTHM: regular rhythm HEART SOUNDS: S1 normal heart sound present and S2 normal heart sound present GI: COMMON NORMALS: Normal to inspection, nondistended, normoactive bowel sounds present, Soft to palpation, No hepatosplenomegaly present and no masses; negative for non-tender (Positive tenderness to palpation over right lower quadrant positive rebound) PALPATION: Yes Soft to palpation and Yes No hepatosplenomegaly present Neuro: COMMON NORMALS: patient oriented x3 SENSORIUM/ORIENTATION: Yes alert Course Vital Signs: Vital signs: Vital Signs Temperature 97.9 F 05/25/24 20:53 Pulse Rate 75 05/25/24 22:34 Respiratory Rate 16 05/25/24 22:34 Blood Pressure 106/64 05/25/24 22:34 Pulse Oximetry 100 05/25/24 22:34 Oxygen Delivery Me thod Room Air 05/25/24 20:53 MDM - Abdominal Pain Medical Decision Making Lab work revealed normal white count at 6.72, urinary tract infection positive, abdomen CT showed mildly acute appendicitis cannot be excluded with no periappendiceal fat stranding radiologist that this may be an early case or just an irritated appendix. These results was discussed with the patient. Patient be placed on antibiotics referred outpatient to a general surgeon. Patient knows that if this is true appendicitis is we will probably only get worse and she may have to come back to have it removed. Medical Records I reviewed the patient's medical records. Lab Data I reviewed the patient's lab results. 05/25/24 21:29 05/25/24 21:29 Labs/Radiology: Radiology Impressions Abdomen/Pelvis CT 05/25/24 21:59 IMPRESSION: 1. The appendix is folded upon itself and mildly dilated measuring up to 7 mm and mildly thickened wall measuring up to 4 mm. No significant periappendiceal fat stranding however a mild acute appendicitis can not be excluded. 2. Asymmetric bladder wall thickening involving the inferior and left lateral fry not present on prior exam. Cannot exclude a bladder wall lesion and recommend Urology consultation for further evaluation. ADDENDUM: 05/25/24 [id number] THIS REPORT CONTAINS FINDINGS THAT MAY BE CRITICAL TO PATIENT CARE. The findings were verbally communicated via telephone conference with Riley Pino at 11:13 PM RIDE ATTENDANT on 05/25/2024. The findings were acknowledged and understood. Laboratory Results WBC 6.72 10^3/uL (3.29-11.43) 05/25/24: RBC 4.23 10^6/uL (3.85-5.65) 05/25/24 21: Hgb 12.20 g/dL (11.27-16.99) 05/25/24: Hct 37.7 % (36-47) 05/25/24 21: MCV 89.1 fl (85-98) 05/25/24 21: MCH 28.8 pg (27-33) 05/25/24 21: MCHC 32.4 g/dL (30-55) 05/25/24: RDW 13.4 % (12.1-15.1) 05/25/24 21: Plt Count 191 10^3/cmm (157-399) 05/25/24: MPV 10.6 fL (7.4-10.4) H 05/25/24: Neut % (Auto) 52.9 % 05/25/24: Lymph % (Auto) 33.0 % 05/25/24: [place] % (Auto) 7.7 % 05/25/24: Eos % (Auto) 6.0 % 05/25/24: Baso % (Auto) 0.3 % 05/25/24: Neut # (Auto) 3.55 10^3/uL (1.8-7.7) 05/25/24: Lymph # (Auto) 2.2 10^3/uL (0.8-4.8) 05/25/24 21: Baldwin # (Auto) 0.5 10^3/uL (0.2-0.9) 05/25/24: Eos # (Auto) 0.4 10^3/uL (0.0-0.8) 05/25/24: Baso # (Auto) 0.0 10^3/uL (0.0-0.1) 05/25/24: Nucleated RBC % (auto) 0 % 05/25/24: Nucleated RBCs # 0.0 /100WBC 05/25/24: Sodium 136 mmol/L (136-145) 05/25/24: Potassium 3.6 mmol/L (3.5-5.1) 05/25/24: Chloride 100 mmol/L (98-107) 05/25/24: Carbon Dioxide 26 mmol/L (22-29) 05/25/24: Anion Gap 13.6 (5-19) 05/25/24: BUN 9 mg/dL (6-20) 05/25/24: Creatinine 0.7 mg/dL (0.5-0.9) 05/25/24: GFR Calculation 93.2 mL/min (90-130) 05/25/24: Glucose 95 mg/dL (65-115) 05/25/24: Calculated Osmolality 280 mOsm/kg (285-295) L 05/25/24: Calcium 9.3 mg/dL (8.5-10.5) 05/25/24: Total Bilirubin 0.3 mg/dL (0.15-1.2) 05/25/24: AST 13 U/L (0-32) 05/25/24: ALT 8 U/L (0-33) 05/25/24: Alkaline Phosphatase 88 U/L (35-105) 05/25/24: Total Protein 7.8 g/dL (6.6-8.7) 05/25/24: Albumin 4.1 g/dL (3.5-5.2) 05/25/24: Globulin 3.7 g/dL (1.3-4.6) 05/25/24 21: Lipase 36 U/L (13-60) 05/25/24 21:29 HCG, Qual Negative (Negative) 05/25/24 21: Urine Color Yellow (Yellow) 05/25/24 21:34 Urine Appearance Turbid (CLEAR) A 05/25/24 21:34 Urine pH 5.5 (5-7) 05/25/24 21:34 Ur Specific [place] 1.019 (1.005-1.030) 05/25/24 21:34 Urine Protein 2+ (Negative) A 05/25/24 21: Urine Glucose (UA) Negative (Normal) 05/25/24 21: Urine Ketones Negative (Negative) 05/25/24 21: Urine Blood 2+ (Negative) A 05/25/24 21: Urine Nitrate Negative (Negative) 05/25/24 21: Urine Bilirubin Negative (Negative) 05/25/24 21: Urine Urobilinogen 1.0 mg/dL (Negative) 05/25/24 21:34 Ur Leukocyte Esterase 2+ (Negative) A 05/25/24 21:34 Urine RBC 6-10 /hpf (0-2) 05/25/24 21:34 Urine WBC >100 /hpf (0-5) H 05/25/24 21:34 Ur Squamous Epith Cells 6-10 /hpf (0-5) 05/25/24 21:34 Amorphous Sediment Not Reportable 05/25/24 21:34 Urine Bacteria 2+ /hpf (NONE) H 05/25/24 21:34 Hyaline Casts 5.77 /lpf 05/25/24 21:34 All radiology interpretation(s) finalized by discharge Discharge Plan Discharge Patient Disposition: Home Clinical Impression: Abdominal pain, right lower quadrant Urinary tract infection Qualifiers: Urinary tract infection type: acute cystitis Hematuria presence: with hematuria Qualified Code(s): N30.01 - Acute cystitis with hematuria Condition: Stable Prescriptions: New amoxicillin-pot clavulanate 875-125 mg tablet 1 tab PO Q12H Qty: 20 0RF No Action mecobalamin (vitamin B12) 1,000 mcg tablet,chewable 1,000 mcg PO DAILY nitrofurantoin monohyd/m-cryst 100 mg capsule 100 mg PO DAILY Percocet 10-325 mg tablet 1 tab PO BID PRN (Reason: pain) Qty: 14 0RF Discharge Orders: Discharge ED (Routine); Ordered 05/25/24 Ordered By: Riley Pino Referrals: Chelsi Gallagher FNP [Primary Care Provider] - 1 week Patient Instructions: Abdominal Pain (ED), Urinary Tract Infection in Women (DC) Activity Restrictions/Additional Instructions: Your evaluation ER showed you have a urinary tract infection and your appendix is very slightly irritated. This may be an early case of appendicitis. You will be placed on antibiotics and also referred to general surgery. Case management will be calling you at the next business day to arrange this appointment. Please get your antibiotics filled and take them as directed. If your pain worsens or becomes unbearable please feel free to return to the ER. Print Language: Khmer Coding Level of Care Code ED Marking Room Supervisor for Carie Ross
[2024-05-25 21:39] LABS: Basophils % 0.3 %; Eosinophils # 0.4 10^3/uL (0.0-0.8); Hematocrit 37.7 % (36-47); Lymphocytes # 2.2 10^3/uL (0.8-4.8); Mean Corpuscular HGB Conc 32.4 g/dL (30-55); Mean Corpuscular Hemoglobin 28.8 pg (27-33); Mean Corpuscular Volume 89.1 fl (85-98); Mean Platelet Volume 10.6 fL (7.4-10.4); Monocytes # 0.5 10^3/uL (0.2-0.9); Monocytes % 7.7 %; Neutrophils # 3.55 10^3/uL (1.8-7.7); Neutrophils % 52.9 %; Nucleated Red Blood Cells % 0 %; Platelet Count 191 10^3/cmm (157-399); Red Blood Count 4.23 10^6/uL (3.85-5.65); Red Cell Distribution Width 13.4 % (12.1-15.1); White Blood Count 6.72 10^3/uL (3.29-11.43)
[2024-05-25 21:43] LABS: Bilirubin Urine Negative (Negative); Blood Urine 2+ (Negative); Glucose Urine UA Negative (Normal); Ketones Urine Negative (Negative); Leukocyte Esterase Urine 2+ (Negative); Nitrate Urine Negative (Negative); Protein Urine 2+ (Negative); Specific Gravity, Urine 1.019 (1.005-1.030); Urine Appearance Turbid (CLEAR); Urine Color Yellow (Yellow); pH Urine 5.5 (5-7)
[2024-05-25 21:46] LABS: Add Urine Microscopic? YES; Bacteria Urine 2+ /hpf; Hyaline Casts Urine 5.77 /lpf; WBC Urine >100 /hpf (0-5)
[2024-05-25 21:53] LABS: Alanine Aminotransferase 8 U/L (0-33); Albumin Level 4.1 g/dL (3.5-5.2); Alkaline Phosphatase 88 U/L (35-105); Anion Gap 13.6 (5-19); Aspartate Amino Transferase 13 U/L (0-32); Blood Urea Nitrogen 9 mg/dL (6-20); Calcium 9.3 mg/dL (8.5-10.5); Carbon Dioxide 26 mmol/L (22-29); Chloride 100 mmol/L (98-107); Creatinine Clr Calc Pharmacy 95.0891; Globulin 3.7 g/dL (1.3-4.6); Glomerular Filtration Rate 93.2 mL/min (90-130); Glucose 95 mg/dL (65-115); Lipase 36 U/L (13-60); Osmolality Calculated 280 mOsm/kg (285-295); Potassium 3.6 mmol/L (3.5-5.1); Sodium 136 mmol/L (136-145); Total Bilirubin 0.3 mg/dL (0.15-1.2); Total Protein 7.8 g/dL (6.6-8.7)
--- NOTE | 2024-05-25 21:59 | CTR_ITS ---
PROCEDURE INFORMATION: Exam: CT Abdomen And Pelvis With Contrast Exam date and time: 05/25/2024 10:19 PM Age: 39 years old Clinical indication: Abdominal pain; Localized; Right lower quadrant (rlq); Additional info: Right lower quadrant abdominal pain TECHNIQUE: Imaging protocol: Computed tomography of the abdomen and pelvis with contrast. Radiation optimization: All CT scans at this facility use at least one of these dose optimization techniques: automated exposure control; mA and/or kV adjustment per patient size (includes targeted exams where dose is matched to clinical indication); or iterative reconstruction. Contrast material: OMNIPAQUE 350; Contrast volume: 100 ml; Contrast route: INTRAVENOUS (IV); COMPARISON: CT abdomen pelvis wo con [id number] 07/02/2022 12:12 PM RADIATION DOSE METRICS: Total DLP (mGy-cm): 413.26 FINDINGS: Liver: Bilobar hypodense lesions likely representing simple cysts. Gallbladder and biliary ducts: Unremarkable. Pancreas: Unremarkable. Spleen: Unremarkable. Adrenal glands: Unremarkable. Kidneys and ureters: Unremarkable. No hydronephrosis. Stomach and bowel: No mechanical obstruction. No mucosal thickening. Appendix: The appendix is folded upon itself and mildly dilated measuring up to 7 mm and mildly thickened wall measuring up to 4 mm. Intraperitoneal space: No free air or free fluid. Vasculature: Unremarkable. Lymph nodes: Unremarkable. No enlarged lymph nodes. Urinary bladder: Asymmetric bladder wall thickening involving the inferior and left lateral fry not present on prior exam. Reproductive: Unremarkable. Bones/joints: Mild multilevel spondylosis. Soft tissues: Unremarkable. CT/CT abdomen pelvis w con* [id number] IMPRESSION: 1. The appendix is folded upon itself and mildly dilated measuring up to 7 mm and mildly thickened wall measuring up to 4 mm. No significant periappendiceal fat stranding however a mild acute appendicitis can not be excluded. 2. Asymmetric bladder wall thickening involving the inferior and left lateral fry not present on prior exam. Cannot exclude a bladder wall lesion and recommend Urology consultation for further evaluation.
[2024-05-25 22:00] LABS: HCG, Serum Qual Negative (Negative)
[2024-05-25 22:03] LABS: UA Slide Review UA Slide Review Perf
[2024-05-25 22:04] LABS: Add Urine Culture? Yes
[2024-05-25 22:15] VITALS: BP 100/63; PULSE 81; RESP 16; O2SAT 100
[2024-05-25] MEDS: iohexol 350 mg/mL 500 mL Btl (per mL) IV (22:22)
[2024-05-25 22:34] VITALS: BP 106/64; PULSE 75; RESP 16; O2SAT 100
[2024-05-25] MEDS: amoxicillin-clav 875-125 mg Tablet 1 TAB PO (23:30)
[2024-05-25 23:36] VITALS: BP 106/62; PULSE 77; RESP 16; O2SAT 100
--- NOTE | 2024-05-26 07:33 | DCPLANNER ---
Message sent to General Surgery for follow up.-Patient presents to the ER with complaints of lower right sided abdominal pain started yesterday at about noon. Has stayed constant for much the entire time. Patient has had a bowel movement and did not make it better or worse. Patient has never had pain in this area before, patient still has her appendix.
== END 2024-05-25 23:37 | disposition home or self-care (01) ==
PROVIDERS: Emergency Medicine; Emergency Provider Emergency Medicine; PCP Nurse Practitioner Family
DX: N30.01 Acute cystitis with hematuria (principal)
CPT/HCPCS: 74177; 80053; 81001; 83690; 84703; 85025; 87077; 87086; 87186; 99285

== ENCOUNTER → 2024-06-01 08:43 | Outpatient (BNVA) | payer BC, SELFPAY | PROVIDERS: PCP Nurse Practitioner Family | DX: J02.9 Acute pharyngitis, unspecified (principal) | CPT/HCPCS: 87400; 87880 ==

== ENCOUNTER → 2024-06-15 07:17 | Day surgery (SDC) | payer BC, SELFPAY ==
[2024-06-15] VITALS (8 sets, daily range): BP systolic 92–117; BP diastolic 51–74; PULSE 65–92; RESP 16–18; TEMP 36.2–36.7; O2SAT 95–100; BMI 25.9
[2024-06-15 07:29] LABS: OR HCG Qualitative Urine Negative (Negative)
[2024-06-15] MEDS: sodium chloride 0.9% 1,000 ML 30 ML IV (07:50)
--- NOTE | 2024-06-15 08:00 | W.PM.OPSUD ---
Surgery/Procedure H&P Update DATE OF PROCEDURE: June 15, 2024 DATE H&P PERFORMED: 05/31/24 H&P UPDATE INFORMATION: I have reviewed H&P completed within last 30 days, I have examined patient prior to procedure and No changes to prior documentation PLANNED PROCEDURE: Operation Date: 06/15/24 07:00 Proposed Procedures p Laparoscopic Appendectomy [id number], Z87.19(Not Applicable) - Colton Reveles,
[2024-06-15] MEDS: ceFAZolin 2,000 mg SDV 2000 MG IVP (08:05)
[2024-06-15] MEDS: lidocaine-epi 2% PF 1:200,000 20 mL SDV XX (08:38)
--- NOTE | 2024-06-15 08:42 | P.OP_ITS ---
Operative Report Date of procedure: June 15, 2024 Pre-op diagnosis: History of acute appendicitis Post-op diagnosis: same Procedure done: Laparoscopic appendectomy Implants: none Specimens removed/disposition: Appendix Surgeon: Colton Reveles DO Anesthesia: General and Local Estimated blood loss (mL): 5 Complications: None apparent Procedure: Patient was wheeled into the operative room and placed on the OR table in a supine position. Abdomen was inspected prepped and draped in usual sterile fashion. Time-out was performed and all present were in agreement. A 15 blade scalp was used to make a stab incision in the left upper quadrant and intra- abdominal insufflation was achieved using a Veress needle. After localizing the tissue incisions were made and a 12 millimeter trocar was placed into the umbilicus as well as a 5mm in the right lower quadrant and a 5 mm in the left lower quadrant . The appendix was identified and was normal in appearance. I used the laparoscopic ligature to ligate the mesoappendix at the base. I then used 2 PDS endo-loops to snare the base of the appendix. I then used the laparoscopic ligature to ligate the appendix distally. The appendix was removed from the abdomen using an Endo-Catch bag through the umbilical incision. I examined the abdomen and no further pathology was identified. Hemostasis was noted. I then closed the umbilical site with a Justice-Holly and 0 Vicryl suture in a figure of 8 fashion. All ports removed. Skin was washed and dr ied. Incisions were closed with 4 O Vicryl in a subcuticular interrupted fashion. Skin glue was applied. Patient tolerated the procedure well.
[2024-06-15] MEDS: HYDROcodone-acetaminophen 7.5-325 mg Tablet 1 TAB PO (09:39)
--- NOTE | 2024-06-15 10:05 | ANE.PACU2 ---
Inpatient post-anesthesia follow up: Airway intact: Yes Vital signs: Temperature 97.2 F Pulse Rate 67 Respiratory Rate 17 Blood Pressure 102/65 Pulse Oximetry 100 Oxygen Delivery Me thod Room Air Oxygen Flow Rate Fraction of Inspir ed Oxygen Hydration adequate: Yes Nausea and vomiting: No Pain level: 1 Mental status: Baseline
== END | disposition home or self-care (01) ==
PROVIDERS: Anesthesiology; PCP Nurse Practitioner Family; Visit Provider Surgery
PROC: 0DTJ4ZZ Resection of Appendix, Percutaneous Endoscopic Approach (ICD-10-PCS; CPT 44970; principal; 2024-06-15 07:00)
DX: K35.80 Unspecified acute appendicitis (principal)
CPT/HCPCS: 44970; 81025; 88304; A4216; J0690; J1100; J2405; J2704; J3010; J3490; J7030; J9999

== ENCOUNTER 2024-09-06 17:47 | Emergency (ER) | payer BC, SELFPAY ==
[2024-09-06 17:50] VITALS: BP 116/61; PULSE 75; TEMP 36.7; O2SAT 96; BMI 25.6
[2024-09-06 18:11] LABS: Basophils % 0.4 %; Eosinophils # 0.3 10^3/uL (0.0-0.8); Eosinophils % 5.8 %; Hematocrit 39.2 % (36-47); Lymphocytes # 2.6 10^3/uL (0.8-4.8); Lymphocytes % 46.5 %; Mean Corpuscular HGB Conc 31.6 g/dL (30-55); Mean Corpuscular Hemoglobin 28.1 pg (27-33); Mean Corpuscular Volume 88.9 fl (85-98); Mean Platelet Volume 11.4 fL (7.4-10.4); Monocytes # 0.5 10^3/uL (0.2-0.9); Monocytes % 8.1 %; Neutrophils # 2.21 10^3/uL (1.8-7.7); Nucleated Red Blood Cells % 0 %; Platelet Count 166 10^3/cmm (157-399); Red Blood Count 4.41 10^6/uL (3.85-5.65); Red Cell Distribution Width 13.4 % (12.1-15.1); White Blood Count 5.66 10^3/uL (3.29-11.43)
[2024-09-06 18:29] LABS: Alanine Aminotransferase 9 U/L (0-33); Albumin Level 4.2 g/dL (3.5-5.2); Alkaline Phosphatase 74 U/L (35-105); Anion Gap 16.9 (5-19); Aspartate Amino Transferase 15 U/L (0-32); Blood Urea Nitrogen 8 mg/dL (6-20); Carbon Dioxide 21 mmol/L (22-29); Chloride 102 mmol/L (98-107); Creatinine Clr Calc Pharmacy 110.2163; Glomerular Filtration Rate 111.3 mL/min (90-130); Glucose 83 mg/dL (65-115); Lipase 33 U/L (13-60); Osmolality Calculated 279 mOsm/kg (285-295); Potassium 3.9 mmol/L (3.5-5.1); Sodium 136 mmol/L (136-145); Total Bilirubin 0.3 mg/dL (0.15-1.2); Total Protein 8.2 g/dL (6.6-8.7)
[2024-09-06 18:30] LABS: HCG, Serum Qual Negative (Negative)
[2024-09-06 19:19] LABS: Bilirubin Urine Negative (Negative); Blood Urine Negative (Negative); Glucose Urine UA Negative (Normal); Ketones Urine Negative (Negative); Leukocyte Esterase Urine Trace (Negative); Nitrate Urine Negative (Negative); Protein Urine Negative (Negative); Specific Gravity, Urine 1.008 (1.005-1.030); Urine Appearance Clear (CLEAR); Urine Color Yellow (Yellow); pH Urine 6.5 (5-7)
[2024-09-06 19:24] LABS: Add Urine Microscopic? YES; Bacteria Urine None Seen /hpf; Hyaline Casts Urine 0-4 /lpf; RBC Urine 0-2 /hpf (0-2); Squamous Epithelial Cell Urine 0-5 /hpf (0-5)
--- NOTE | 2024-09-06 19:41 | XRR_ITS ---
PROCEDURE INFORMATION: Exam: XR Right Hip Exam date and time: 09/06/2024 7:52 PM Age: 39 years old Clinical indication: Hip pain; Right hip; Additional info: Pain; One view pelvis too TECHNIQUE: Imaging protocol: Radiologic exam of the right hip. Views: 1 view hip with pelvis when performed. COMPARISON: CT abdomen pelvis w con* [id number] 05/25/2024 10:19 PM FINDINGS: Bones/joints: Unremarkable. No acute fracture. Soft tissues: Unremarkable. XR/XR hip RT 2-3V wo/w pel* [id number] IMPRESSION: No acute findings.
--- NOTE | 2024-09-06 19:42 | ED_ITS ---
HPI - Back Pain/Injury 2 General: Chief Complaint: Back Pain/Injury Stated Complaint: R side abd and back pain Time Seen by Provider: 09/06/24 18:51 Source: patient Mode of arrival: ambulatory Limitations: no limitations History of Present Illness: Patient is a 39-year-old female with a history of adrenoleukodystrophy here for complaints of lower back pain and right hip pain. Patient states she has a chronic history of back pain and spasticity to her lower extremities. She states she walks with a limp to her left leg. States these are associated with the disease. States she was seeing neurology in [place] but has since transferred care to neurology at [facility]. She states at this point she was told there is no definitive treatment. She is taking Baclofen. She does states she lifted/moved her baby yesterday and feels like symptoms somewhat worsened after this. She states her pain to her right hip is somewhat chronic and frustrated that nobody has seen to address this. She thinks it is from overcompensating due to the lump on the left. MD elicited complaint: back pain and other (R hip pain) Pertinent past history: prior back pain Onset (ago): day(s) Timing: constant Severity: moderate Similar Symptoms Previously: Yes Location: lumbar spine and right lower back Radiation: none Exacerbating factors: movement and walking Relieving factors: none Associated symptoms: Deny abdominal pain, chills, dysuria, fatigue, fever(s) or urinary urgency Work related injury: No Related Data Home Medications ?Medication ?Instructions ?Recorded ?Confirmed mecobalamin (vitamin B12) 1,000 1,000 mcg PO DAILY 08/06/24 mcg chewable tablet Previous Rx's ?Medication ?Instructions ?Recorded albuterol sulfate 90 mcg/actuation 2 puff inhalation Q 6H PRN 08/06/24 aerosol inhaler shortness of breath or wheez ing #8.5 grams amoxicillin 875 mg-potassium 1 tab PO BID 7 days #14 t abs 08/06/24 clavulanate 125 mg tablet vychoehkdqwrdrn-nsjiruzbdsczypa-ZB 5 ml PO Q6H PRN col d symptoms #118 08/06/24 2 mg-30 mg-10 mg/5 mL oral syrup mL (Bromfed DM) ibuprofen 600 mg tablet 600 mg PO Q8H PRN pain #14 t abs 09/06/24 prednisone 10 mg tablet 10 mg PO DAILY 6 days #20 ta bs 09/06/24 Allergies Allergy/AdvReac Type Severity Reaction Status Date / Time No Known Allergies Allergy Verified 09/06/24 17:54 Review of Systems 2 Const: Denies: fever(s), chills, body aches, fatigue or malaise Card: Denies: chest pain Resp: Denies: dyspnea GI: Denies: abdominal pain : Denies: flank pain, difficulty voiding, dysuria, urinary frequency, urinary urgency or urinary hesitancy Musc: Reports: back pain and joint pain (R hip); Denies: neck pain, extremity pain, extremity swelling, joint swelling, joint redness or joint warmth Skin/Breast: Denies: rash Neuro: Denies: headache(s), numbness in extremities, weakness in extremities or sensory changes PFSH ED 2 PFSH: Medical History History of appendicitis Gross hematuria Recurrent UTI Surgical History No significant past surgical history Family History Family/Other Cancer colon Diabetes Father Colon cancer Mother Hyperlipidemia Hypertension Grandfather Stroke Denies family history of Ovarian cancer Heart disease Breast cancer Uterine cancer Thyroid disease Social History Smoking and tobacco/nicotine status: never used tobacco/nicotine Physical Exam 2 Const: COMMON NORMALS: no acute distress, average body habitus, patient oriented x3, no limitations, healthy appearing, alert and well nourished G ENERAL APPEARANCE: cooperative ORIENTATION/CONSCIOUSNESS: Yes awake, Yes oriented to person, Yes oriented to place and Yes oriented to time Neck/C-Spine: COMMON NORMALS: full ROM and no meningeal signs Resp: COMMON NORMALS: normal respiratory effort and clear to auscultation bilaterally AUSCULTATION: clear to auscultation bilaterally Cardio: COMMON NORMALS: regular rate and regular rhythm RATE: regular rate RHYTHM: regular rhythm GI: COMMON NORMALS: Normal to inspection, nondistended, normoactive bowel sounds present, Soft to palpation, non-tender and no masses PALPATION: Yes Soft to palpation : COMMON NORMALS: Yes no CVA tenderness BLADDER/KIDNEY EXAM: Yes no CVA tenderness Back/Pelvis: COMMON NORMALS: no CVA tenderness and thoracic and lumbar spine normal to inspection LUMBAR SPINE/LOWER BACK: Yes lumbar spinal tenderness and Yes paraspinal muscle tenderness PELVIS: Yes buttocks normal S ACROILIAC JOINTS: Yes SI joints normal SACRUM: no tenderness COCCYX: no tenderness BACK IMAGE (FEMALE): 1. TTP Extremity: COMMON NORMALS: capillary refill normal, no clubbing, cyanosis or edema, no calf tenderness and no pedal edema GENERAL: Yes normal exam except as noted RIGHT LOWER EXTREMITY: Yes hip joint Right hip: Yes inspection (normal gross inspection) and Yes neurovascular exam (normal) Neuro: COMMON NORMALS: patient oriented x3 and moves all extremities S ENSORIUM/ORIENTATION: Yes alert, Yes oriented to person, Yes oriented to place and Yes oriented to time MENINGEAL SIGNS: Yes no meningeal signs Skin: COMMON NORMALS: no rashes or lesions noted GENERAL SKIN EXAM: no rashes or lesions noted Course 2 Vital Signs: Vital signs: Vital Signs Temperature 98.0 F 09/06/24 17:50 Pulse Rate 75 09/06/24 17:50 Blood Pressure 116/61 09/06/24 17:50 Pulse Oximetry 96 09/06/24 17:50 Oxygen Delivery Me thod Room Air 09/06/24 17:50 MDM - Back Pain/Injury Medical Decision Making Blood work/UA ordered from triage is unremarkable. She had requested imaging of the right hip. This was reviewed-I do not visualize any acute abnormalities. Pending official radiology overread. Recommend she continue her baclofen. Recommend she start taking ibuprofen and will place her on a small steroid taper over the next 6 days. Recommend she follow-up with primary care and her special test. Return to ED precautions discussed. Medical Records I reviewed the patient's medical records. Labs I reviewed the patient's lab results. 09/06/24 18:06 09/06/24 18:06 Laboratory Results WBC 5.66 10^3/uL (3.29-11.43) 09/06/24 18:06 RBC 4.41 10^6/uL (3.85-5.65) 09/06/24 18:06 Hgb 12.40 g/dL (11.27-16.99) 09/06/24 18:06 Hct 39.2 % (36-47) 09/06/24 18:06 MCV 88.9 fl (85-98) 09/06/24 18:06 MCH 28.1 pg (27-33) 09/06/24 18:06 MCHC 31.6 g/dL (30-55) 09/06/24 18:06 RDW 13.4 % (12.1-15.1) 09/06/24 18:06 Plt Count 166 10^3/cmm (157-399) 09/06/24 18:06 MPV 11.4 fL (7.4-10.4) H 09/06/24 18:06 Neut % (Auto) 39.0 % 09/06/24 18:06 Lymph % (Auto) 46.5 % 09/06/24 18:06 [place] % (Auto) 8.1 % 09/06/24 18:06 Eos % (Auto) 5.8 % 09/06/24 18:06 Baso % (Auto) 0.4 % 09/06/24 18:06 Neut # (Auto) 2.21 10^3/uL (1.8-7.7) 09/06/24 18:06 Lymph # (Auto) 2.6 10^3/uL (0.8-4.8) 09/06/24 18:06 Imperial # (Auto) 0.5 10^3/uL (0.2-0.9) 09/06/24 18:06 Eos # (Auto) 0.3 10^3/uL (0.0-0.8) 09/06/24 18:06 Baso # (Auto) 0.0 10^3/uL (0.0-0.1) 09/06/24 18:06 Nucleated RBC % (auto) 0 % 09/06/24 18:06 Nucleated RBCs # 0.0 /100WBC 09/06/24 18:06 Sodium 136 mmol/L (136-145) 09/06/24 18:06 Potassium 3.9 mmol/L (3.5-5.1) 09/06/24 18:06 Chloride 102 mmol/L (98-107) 09/06/24 18:06 Carbon Dioxide 21 mmol/L (22-29) L 09/06/24 18:06 Anion Gap 16.9 (5-19) 09/06/24 18:06 BUN 8 mg/dL (6-20) 09/06/24 18:06 Creatinine 0.6 mg/dL (0.5-0.9) 09/06/24 18:06 GFR Calculation 111.3 mL/min (90-130) 09/06/24 18:06 Glucose 83 mg/dL (65-115) 09/06/24 18:06 Calculated Osmolality 279 mOsm/kg (285-295) L 09/06/24 18:06 Calcium 9.0 mg/dL (8.5-10.5) 09/06/24 18:06 Total Bilirubin 0.3 mg/dL (0.15-1.2) 09/06/24 18:06 AST 15 U/L (0-32) 09/06/24 18:06 ALT 9 U/L (0-33) 09/06/24 18:06 Alkaline Phosphatase 74 U/L (35-105) 09/06/24 18:06 Total Protein 8.2 g/dL (6.6-8.7) 09/06/24 18:06 Albumin 4.2 g/dL (3.5-5.2) 09/06/24 18:06 Globulin 4.0 g/dL (1.3-4.6) 09/06/24 18:06 Lipase 33 U/L (13-60) 09/06/24 18:06 HCG, Qual Negative (Negative) 09/06/24 18:06 Urine Color Yellow (Yellow) 09/06/24 18:59 Urine Appearance Clear (CLEAR) 09/06/24 18:59 Urine pH 6.5 (5-7) 09/06/24 18:59 Ur Specific [place] 1.008 (1.005-1.030) 09/06/24 18:59 Urine Protein Negative (Negative) 09/06/24 18:59 Urine Glucose (UA) Negative (Normal) 09/06/24 18:59 Urine Ketones Negative (Negative) 09/06/24 18:59 Urine Blood Negative (Negative) 09/06/24 18:59 Urine Nitrate Negative (Negative) 09/06/24 18:59 Urine Bilirubin Negative (Negative) 09/06/24 18:59 Urine Urobilinogen 1.0 mg/dL (Negative) 09/06/24 18:59 Ur Leukocyte Esterase Trace (Negative) A 09/06/24 18:59 Urine RBC 0-2 /hpf (0-2) 09/06/24 18:59 Urine WBC 6-10 /hpf (0-5) 09/06/24 18:59 Ur Squamous Epith Cells 0-5 /hpf (0-5) 09/06/24 18:59 Amorphous Sediment Not Reportable 09/06/24 18:59 Urine Bacteria None seen /hpf (NONE) 09/06/24 18:59 Hyaline Casts 0-4 /lpf H 09/06/24 18:59 XR interpretation done by ED provider, pending radiology final review Discharge Plan Discharge Patient Disposition: Home Clinical Impression: Hip pain, right, Acute on chronic back pain Condition: Stable Prescriptions: New prednisone 10 mg tablet 10 mg PO DAILY 6 Days Qty: 20 0RF Rx Instructions: Take 5 tabs on day 1-2, 4 tabs on day 3, 3 tabs on day 4, 2 tabs on day 5, and 1 tab on day 6 ibuprofen 600 mg tablet 600 mg PO Q8H PRN (Reason: pain) Qty: 14 0RF Discontinued dexamethasone 2 mg tablet 10 mg PO DAILY 1 Days Qty: 5 0RF Rx Instructions: take all at same time today No Action mecobalamin (vitamin B12) 1,000 mcg tablet,chewable 1,000 mcg PO DAILY albuterol sulfate 90 mcg/actuation HFA aerosol inhaler 2 puff inhalation Q6H PRN (Reason: shortness of breath or wheezing) Qty: 8.5 0RF [id number]-nrdqvhflg-KP [Bromfed DM] 2-30-10 mg/5 mL syrup 5 ml PO Q6H PRN (Reason: cold symptoms) Qty: 118 0RF amoxicillin-pot clavulanate 875-125 mg tablet 1 tab PO BID 7 Days Qty: 14 0RF Discharge Orders: Discharge ED (Routine); Ordered 09/06/24 Ordered By: Rebecca Brandon Referrals: Chelsi Gallagher FNP [Primary Care Provider, Nurse Practitioner] Activity Restrictions/Additional Instructions: As we discussed, please follow-up with your primary care provider as well as your specialists for further evaluation of discomforts. You may return to the emergency department at anytime for any further concerns you may have. I hope you begin to feel better soon. Print Language: Albanian Coding Level of Care Code ED Traffic Rate Computer for Carie Ross
[2024-09-06] MEDS: orphenadrine 30 mg/mL Inj 2 mL 60 MG IM (19:52)
[2024-09-06] MEDS: ketorolac 60 mg/2 mL INJ IM (19:52)
[2024-09-06 20:19] VITALS: BP 128/86; PULSE 78; RESP 18; O2SAT 100
== END 2024-09-06 20:21 | disposition home or self-care (01) ==
PROVIDERS: Emergency Medicine; Emergency Provider Physician Assistant; PCP Nurse Practitioner Family
DX: M25.551 Pain in right hip (principal); M54.9 Dorsalgia, unspecified
CPT/HCPCS: 36415; 73502; 80053; 81001; 83690; 84703; 85025; 96372; 99284; J1885; J2360